=== PATIENT | male | born 1940 | race Caucasian/White ===

== ENCOUNTER 2017-01-16 17:13 | Emergency (ER) | payer MEDICAID ==
[~2017-01-16] VITALS: Ht 177.8 cm; Wt 67.7 kg
[~2017-01-16 17:13] MED LIST: ASPI81TA81 PO; CARB50TA3 PO; CLON0.1T PO; DONE5TAB7 PO; OXYB5TAB10 PO; WARF4TAB51 PO; [UNRECOGNIZED DRUG - CODE] PO
[2017-01-16 17:15] VITALS: BP 153/75; PULSE 60; RESP 16; TEMP 97.9; O2SAT 99
[2017-01-16] MEDS ORDERED: QUET5TAB PO (17:32)
[2017-01-16] MEDS ORDERED: METO50TA11 PO (17:32)
[2017-01-16] MEDS ORDERED: ATOR40TA16 PO (17:32)
[2017-01-16] MEDS ORDERED: LISI2.5T3 PO (17:32)
--- NOTE | 2017-01-16 18:02 | PD ---
HPI Chief Complaint: Keyboard Teacher Problem Time Seen by Provider: 17:21 Travel History International Travel<30 days: No Contact w/Intl Traveler<30days: No Traveled to known affect area: No History of Present Illness HPI This 76-year-old male resents with complaint of blockage of his suprapubic catheter. He has had a suprapubic catheter for about 2 years. It has not been draining. He has been leaking urine out of his penis and around the catheter site. He has been on Cipro for the last 2 days. He has no other complaints PFSH Past Medical History Asthma: No Atrial Fibrillation: Yes Autoimmune Disease: No Anxiety: No Depression: No Heart Rhythm Problems: Yes (PACEMAKER 2013) Cancer: No Cardiac Catheterization: Yes Cardiovascular Problems: Yes (OPEN HEART X5 VESSELS) High Cholesterol: Yes Chest Pain: No Congestive Heart Failure: Yes COPD: No Cerebrovascular Accident: No Coronary Artery Disease: Yes Diabetes: Yes (NO LONGER ) Patient Takes Glucophage: No Diminished Hearing: No Endocrine: No Gastrointestinal Disorders: Yes (RECENT WEIGHT LOSS OF 35 KB IN 2 MONTHS, POOR APPETITE) GERD: No Genitourinary: Yes Headaches: No Hypertension: Yes Immune Disorder: No Implanted Vascular Access Dvce: Yes Musculoskeletal: Yes Neurologic: Yes (PARKINSON'S) Parkinson's Disease: Yes Psychiatric: No Reproductive: No Respiratory: Yes (CHF) Immunizations Current: Yes Migraines: No Myocardial Infarction: Yes Pneumonia: Yes Renal Failure: Yes Seizures: No Sickle Cell Disease: No Sleep Apnea: Yes ("USES MACHINE AT NIGHT") Thyroid Disease: No ?: Not Past Surgical History Abdominal Surgery: Yes AICD: No Appendectomy: Yes Arteriovenous Shunt: No Cardiac Surgery: Yes (4 VESSEL CABG IN 1999, PACER 2012) Coronary Artery Bypass Graft: Yes (4 VESSEL: 1998) Ear Surgery: No Endocrine Surgery: No Eye Surgery: No Genitourinary Surgery: No Insulin Pump: No Joint Replacement: No Neurologic Surgery: No Oral Surgery: No Pacemaker: Yes ([email or web address] [id number] / [id number]) Thoracic Surgery: Yes Other Surgery: Yes (PACEMAKER ) Social History Alcohol Use: No Tobacco Use: No Substance Use: No Allergies-Medications (Allergen,Severity, Reaction): Coded Allergies: No Known Allergies (Unverified , 01/16/17) Reported Meds & Prescriptions Reported Meds & Active Scripts Active Reported Lisinopril 2.5 Mg Tab 2.5 Mg PO DAILY Quetiapine (Quetiapine Fumarate) 50 Mg Tab 50 Mg PO DAILY Atorvastatin (Atorvastatin Calcium) 40 Mg Tab 40 Mg PO HS Metoprolol Succinate ER 24 HR (Metoprolol Succinate) 50 Mg Tab 50 Mg PO DAILY Ditropan (Oxybutynin Chloride) 5 Mg Tab 5 Mg PO Q12HR Aspir-81 (Aspirin) 81 Mg Tabdr 81 Mg PO DAILY Warfarin 2 Mg Tab 2 Mg PO DAILY Donepezil 5 Mg Tab 5 Mg PO HS Carbidopa-Levodopa ER 50-200 Mg Tab 1 Tab PO TID Pacerone (Amiodarone HCl) 100 Mg Tab 100 Mg PO DAILY Review of Systems General / Constitutional: No: Fever, Chills Cardiovascular: No: Chest Pain or Discomfort Respiratory: No: Cough Gastrointestinal: No: Abdominal Pain Genitourinary: Positive: Decreased Urinary Output Neurologic: No: Weakness Physical Exam Narrative GENERAL: Well developed male SKIN: Focused skin assessment warm/dry. HEAD: Atraumatic. Normocephalic. EYES: Pupils equal and round. No scleral icterus. No injection or drainage. ENT: No nasal bleeding or discharge. Mucous membranes pink and moist. NECK: Trachea midline. No JVD. GASTROINTESTINAL: Abdomen soft, non-tender, nondistended. Hepatic and splenic margins not palpable. Purpuric catheter site appears clean. There is no drainage of urine. MUSCULOSKELETAL: No obvious deformities. No clubbing. No cyanosis. No edema. NEUROLOGICAL: Awake and alert. No obvious cranial nerve deficits. Motor grossly within normal limits. Normal speech. PSYCHIATRIC: Appropriate mood and affect; insight and judgment normal. Data Data Last Documented VS Vital Signs Date Time Temp Pulse Resp B/P (MAP) Pulse Ox O2 Delivery O2 Flow Rate FiO2 01/16/17 17:15 97.9 60 16 153/75 (101) 99 Orders Orders Urinalysis - C+S If Indicated (01/16/17 17:35) MDM Medical Decision Making Medical Screen Exam Complete: Yes Emergency Medical Condition: Yes Medical Record Reviewed: Yes Differential Diagnosis Differential includes blocked suprapubic catheter Narrative Course Catheter has been changed. Urine will be sent for culture but he is already on Cipro Procedures Procedure Narrative Procedure was explained. Using sterile technique an 18 Indonesian catheter was inserted in the suprapubic site after the previous catheter was removed. The patient tolerated the procedure well. There were no complications Diagnosis Primary Impression: Obstructed suprapubic catheter Disposition: 01 DISCHARGE HOME Condition: Stable Az Siegel MD Jan 16, 2017 18:02
[2017-03-02] MEDS ORDERED: CLON0.1T PO (15:31)
[2017-03-02] MEDS ORDERED: FURO40TA PO (15:31)
[2017-03-02] MEDS ORDERED: HYDR-3533 PO (16:47)
== END 2017-01-16 18:19 | disposition home or self-care (01) ==
LOC: PHED 17:13
DX: T83.098A Other mechanical complication of other urinary catheter, initial encounter (principal); R82.99 Other abnormal findings in urine; I10 Essential (primary) hypertension; N19 Unspecified kidney failure; E78.00 Pure hypercholesterolemia, unspecified; I25.2 Old myocardial infarction; G47.30 Sleep apnea, unspecified; Z95.0 Presence of cardiac pacemaker; Z86.79 Personal history of other diseases of the circulatory system; Z87.19 Personal history of other diseases of the digestive system; Z87.448 Personal history of other diseases of urinary system; Z87.39 Personal history of other diseases of the musculoskeletal system and connective tissue; Z86.69 Personal history of other diseases of the nervous system and sense organs
CPT/HCPCS: 51705; 87086

== ENCOUNTER 2017-03-21 12:04 | Emergency (ER) | payer MEDICAID ==
[~2017-03-21] VITALS: Ht 177.8 cm; Wt 72.4 kg
[~2017-03-21 12:04] MED LIST changes: +FURO40TA PO; +HYDR-3533 PO; +LISI2.5T3 PO; +METO1TAB9 PO; -OXYB5TAB10 PO; +OXYB5TAB8 PO
[2017-03-21 12:08] VITALS: BP 148/72; PULSE 59; RESP 18; TEMP 98.6; O2SAT 95
--- NOTE | 2017-03-21 12:31 | PD ---
HPI Chief Complaint: Complaint Time Seen by Provider: 12:25 Travel History International Travel<30 days: No Contact w/Intl Traveler<30days: No Traveled to known affect area: No History of Present Illness HPI The patient is a 76-year-old male who presents to the emergency department for dysuria. The patient has a history of chronic indwelling suprapubic catheter secondary to inability to urinate. Patient is followed by his urologist, Dr. Rojas. Most of the history is obtained from family members at bedside. The patient apparently had abdominal discomfort and a blockage of his catheter earlier today, had a small amount of bloody output from the urinary catheter, however, the M.D. to 3 hours ago and the patient now has 300 mL's of dark- colored urine. He denies any acute pain of the suprapubic region upon presentation, but did complain of pain earlier in the day. The family does note the patient has a history of fluid overload secondary to an underlying valvular disorder and is followed by his [facility] specialists, Dr. Perez. They do note the patient has had some increasing swelling of the right leg, right chest wall, and right lateral abdomen secondary to leaning on the right side for several days. The patient is currently on Coumadin. They deny any trauma to the right lower extremity. Symptoms are mild to moderate, possibly exacerbated by underlying urinary tract infection or catheter malfunction, and no current alleviating factors. The patient's primary physician is Dr. Richard. [facility] Past Medical History Hx Anticoagulant Therapy: Yes Asthma: No Atrial Fibrillation: Yes Autoimmune Disease: No Anxiety: No Depression: No Heart Rhythm Problems: Yes (PACEMAKER 2012) Cancer: No Cardiac Catheterization: Yes Cardiovascular Problems: Yes High Cholesterol: Yes Chest Pain: No Congestive Heart Failure: Yes COPD: No Cerebrovascular Accident: No Coronary Artery Disease: Yes Diabetes: Yes (NO LONGER ) Patient Takes Glucophage: No Diminished Hearing: No Endocrine: No Gastrointestinal Disorders: Yes (RECENT WEIGHT LOSS OF 35 KB IN 2 MONTHS, POOR APPETITE) GERD: No Genitourinary: Yes Headaches: No Hypertension: Yes Immune Disorder: No Implanted Vascular Access Dvce: Yes Musculoskeletal: Yes Neurologic: Yes (PARKINSON'S) Parkinson's Disease: Yes Psychiatric: No Reproductive: No Respiratory: Yes (CHF) Immunizations Current: Yes Migraines: No Myocardial Infarction: Yes Pneumonia: Yes Renal Failure: Yes Seizures: No Sickle Cell Disease: No Sleep Apnea: Yes ("USES MACHINE AT NIGHT") Thyroid Disease: No Past Surgical History Abdominal Surgery: Yes AICD: No Appendectomy: Yes Arteriovenous Shunt: No Cardiac Surgery: Yes (4 VESSEL CABG IN 1999, PACER 2012) Coronary Artery Bypass Graft: Yes (4 VESSEL: 1998) Ear Surgery: No Endocrine Surgery: No Eye Surgery: No Genitourinary Surgery: No Insulin Pump: No Joint Replacement: No Neurologic Surgery: No Oral Surgery: No Pacemaker: Yes ([employer] S606 / [id number]) Thoracic Surgery: Yes Other Surgery: Yes (PACEMAKER ) Social History Alcohol Use: No Tobacco Use: No Substance Use: No Allergies-Medications (Allergen,Severity, Reaction): Coded Allergies: No Known Allergies (Unverified Adverse Reaction, Unknown, 03/21/17) Reported Meds & Prescriptions Reported Meds & Active Scripts Active Reported Clonidine (Clonidine HCl) Unknown Strength Tab 0.1 Mg PO BID Furosemide Unknown Strength Tab 20 Mg PO DAILY Lisinopril 2.5 Mg Tab 20 Mg PO DAILY Metoprolol Succinate ER 24 HR (Metoprolol Succinate) 50 Mg Tab 50 Mg PO DAILY Ditropan (Oxybutynin Chloride) 5 Mg Tab 5 Mg PO Q12HR Aspir-81 (Aspirin) 81 Mg Tabdr 81 Mg PO DAILY Warfarin 2 Mg Tab 2 Mg PO DAILY Donepezil 5 Mg Tab 5 Mg PO HS Carbidopa-Levodopa ER 50-200 Mg Tab 1 Tab PO TID Pacerone (Amiodarone HCl) 100 Mg Tab 100 Mg PO DAILY Review of Systems Except as stated in HPI: all other systems reviewed are Neg General / Constitutional: No: Fever Cardiovascular: Positive: Other (AICD in place with chronic valvular disorder requiring Coumadin), No: Chest Pain or Discomfort Respiratory: No: Shortness of Breath Gastrointestinal: No: Nausea, Vomiting Genitourinary: Positive: Dysuria, Other (as noted in the history of present illness) Musculoskeletal: Positive: Edema Physical Exam Narrative GENERAL: Awake, alert, pleasant 76-year-old male who appears his stated age and is in no acute respiratory distress. SKIN: Focused skin assessment warm/dry. HEAD: Atraumatic. Normocephalic. ENT: No nasal bleeding or discharge. Mucous membranes pink and moist. NECK: Trachea midline. No JVD. CARDIOVASCULAR: Regular rate and rhythm. Holosystolic murmur noted. AICD in place left chest wall. RESPIRATORY: No accessory muscle use. Clear to auscultation. Breath sounds equal bilaterally. GASTROINTESTINAL: Abdomen soft, suprapubic catheter in place. 300 mL also dark brown colored urine noted. MUSCULOSKELETAL: Edema noted of the right lateral chest wall and right leg with petechiae. No tenderness of palpation. Pitting edema right lower extremity greater than the left lower extremity. NEUROLOGICAL: Awake and alert. No obvious cranial nerve deficits. Motor grossly within normal limits. Normal speech. PSYCHIATRIC: Appropriate mood and affect; insight and judgment normal. Data Data Last Documented VS Vital Signs Date Time Temp Pulse Resp B/P (MAP) Pulse Ox O2 Delivery O2 Flow Rate FiO2 03/21/17 12:08 98.6 59 18 148/72 (97) 95 Orders Orders Complete Blood Count With Diff (03/21/17 12:25) Prothrombin Time / Inr (Pt) (03/21/17 12:25) Comprehensive Metabolic Panel (03/21/17 12:25) Creatine Kinase (Cpk) (03/21/17 12:25) Urinalysis - C+S If Indicated (03/21/17 12:25) Bladder/Catheter Irrigation (03/21/17 12:25) Urine Culture (03/21/17 12:45) Ceftriaxone Inj (Rocephin Inj) (03/21/17 13:30) Labs Laboratory Tests Test 03/21/17 12:45 White Blood Count 5.7 TH/MM3 Red Blood Count 4.25 MIL/MM3 Hemoglobin 11.8 GM/DL Hematocrit 36.4 % Mean Corpuscular Volume 85.7 FL Mean Corpuscular Hemoglobin 27.7 PG Mean Corpuscular Hemoglobin Concent 32.3 % Red Cell Distribution Width 14.6 % Platelet Count 224 TH/MM3 Mean Platelet Volume 7.5 FL Neutrophils (%) (Auto) 79.7 % Lymphocytes (%) (Auto) 14.7 % Monocytes (%) (Auto) 3.3 % Eosinophils (%) (Auto) 1.7 % Basophils (%) (Auto) 0.6 % Neutrophils # (Auto) 4.6 TH/MM3 Lymphocytes # (Auto) 0.8 TH/MM3 Monocytes # (Auto) 0.2 TH/MM3 Eosinophils # (Auto) 0.1 TH/MM3 Basophils # (Auto) 0.0 TH/MM3 CBC Comment DIFF FINAL Differential Comment Prothrombin Time 26.5 SEC Prothromb Time International Ratio 2.3 RATIO Urine Collection Type CATH Urine Color STRAW Urine Turbidity MOD Urine pH 6.5 Urine Specific [place] 1.011 Urine Protein 100 mg/dL Urine Glucose (UA) NEG mg/dL Urine Ketones NEG mg/dL Urine Occult Blood LARGE Urine Nitrite NEG Urine Bilirubin NEG Urine Leukocyte Esterase SMALL Urine RBC 100-200 /hpf Urine WBC 20-24 /hpf Urine WBC Clumps OCC Urine Squamous Epithelial Cells 0-5 /hpf Urine Transitional Epithelial Cells 0-5 /hpf Urine Calcium Oxalate Crystals MOD /hpf Urine Amorphous Sediment MOD Urine Bacteria MANY /hpf Microscopic Urinalysis Comment CATH-CULTURE IND Urine Collection Time 1300 Blood Urea Nitrogen 25 MG/DL Creatinine 1.30 MG/DL Random Glucose 110 MG/DL Total Protein 6.4 GM/DL Albumin 3.0 GM/DL Calcium Level 8.2 MG/DL Aspartate Amino Transf (AST/SGOT) 14 U/L Alanine Aminotransferase (ALT/SGPT) 7 U/L Total Bilirubin 0.8 MG/DL Sodium Level 140 MEQ/L Potassium Level 3.7 MEQ/L Chloride Level 107 MEQ/L Carbon Dioxide Level 26.9 MEQ/L Anion Gap 6 MEQ/L Estimat Glomerular Filtration Rate 54 ML/MIN MDM Medical Decision Making Medical Screen Exam Complete: Yes Emergency Medical Condition: Yes Medical Record Reviewed: Yes Interpretation(s) Laboratory Tests Test 03/21/17 12:45 White Blood Count 5.7 TH/MM3 Red Blood Count 4.25 MIL/MM3 Hemoglobin 11.8 GM/DL Hematocrit 36.4 % Mean Corpuscular Volume 85.7 FL Mean Corpuscular Hemoglobin 27.7 PG Mean Corpuscular Hemoglobin Concent 32.3 % Red Cell Distribution Width 14.6 % Platelet Count 224 TH/MM3 Mean Platelet Volume 7.5 FL Neutrophils (%) (Auto) 79.7 % Lymphocytes (%) (Auto) 14.7 % Monocytes (%) (Auto) 3.3 % Eosinophils (%) (Auto) 1.7 % Basophils (%) (Auto) 0.6 % Neutrophils # (Auto) 4.6 TH/MM3 Lymphocytes # (Auto) 0.8 TH/MM3 Monocytes # (Auto) 0.2 TH/MM3 Eosinophils # (Auto) 0.1 TH/MM3 Basophils # (Auto) 0.0 TH/MM3 CBC Comment DIFF FINAL Differential Comment Prothrombin Time 26.5 SEC Prothromb Time International Ratio 2.3 RATIO Urine Collection Type CATH Urine Color STRAW Urine Turbidity MOD Urine pH 6.5 Urine Specific [place] 1.011 Urine Protein 100 mg/dL Urine Glucose (UA) NEG mg/dL Urine Ketones NEG mg/dL Urine Occult Blood LARGE Urine Nitrite NEG Urine Bilirubin NEG Urine Leukocyte Esterase SMALL Urine RBC 100-200 /hpf Urine WBC 20-24 /hpf Urine WBC Clumps OCC Urine Squamous Epithelial Cells 0-5 /hpf Urine Transitional Epithelial Cells 0-5 /hpf Urine Calcium Oxalate Crystals MOD /hpf Urine Amorphous Sediment MOD Urine Bacteria MANY /hpf Microscopic Urinalysis Comment CATH-CULTURE IND Urine Collection Time 1300 Blood Urea Nitrogen 25 MG/DL Creatinine 1.30 MG/DL Random Glucose 110 MG/DL Total Protein 6.4 GM/DL Albumin 3.0 GM/DL Calcium Level 8.2 MG/DL Alkaline Phosphatase 98 U/L Aspartate Amino Transf (AST/SGOT) 14 U/L Alanine Aminotransferase (ALT/SGPT) 7 U/L Total Bilirubin 0.8 MG/DL Sodium Level 140 MEQ/L Potassium Level 3.7 MEQ/L Chloride Level 107 MEQ/L Carbon Dioxide Level 26.9 MEQ/L Anion Gap 6 MEQ/L Estimat Glomerular Filtration Rate 54 ML/MIN Total Creatine Kinase 31 U/L Differential Diagnosis Differential diagnosis includes complicated UTI, obstructive suprapubic catheter , acute renal failure, Coumadin toxicity, dependent edema, hyponatremia, dehydration. Narrative Course IV was established, labs are drawn and sent, and the patient was placed on cardiac telemetry monitoring and continuous pulse oximetry monitoring. UA was sent to lab. The patient's suprapubic catheter was irrigated. The patient does have dependent edema of the right lower extremity with petechiae noted as well as right lateral chest wall, it appears to be secondary to dependent edema. The patient laid on his right side. The patient's family was advised to roll him and have him leaned to the left as well as set upright more often. They're also advised elevate his legs and wear WALDEMAR hose lower extremities as needed. The patient's Peters catheter was irrigated, there was no obstruction. UA reveals RBCs and WBCs with many bacteria, likely complicated urinary tract infection with chronic indwelling catheter. Patient's creatinine has not changed significantly. INR is therapeutic at 2.3, doubt DVT on the right lower extremity with therapeutic INR, most likely dependent edema as he also has it on the right lateral chest wall, family is advised to wear WALDEMAR hose, elevate right lower extremity, and to turn the patient multiple times during the day to avoid dependent edema on the right side of the body. The patient is on Coumadin , therefore, will prescribe Bactrim as opposed to Cipro, and an attempt to not increase the patient's INR. However, he will still need repeat INR this week and follow-up with his primary physician. He will be provided a copy of his labs at discharge. Diagnosis Primary Impression: Complicated UTI (urinary tract infection) Patient Instructions: General Instructions Additional Instructions: Medication as directed. WALDEMAR hose for lower extremities bilaterally. Monitor urinary output. Elevate right lower extremity. Turn patient several times throughout the day to avoid dependent edema on the right side of the body. Please provide the family and patient a copy of his labs at discharge for follow -up with his primary physician. Return if symptoms worsen or progress. Med/Other Pt SpecificInfo: Prescription(s) given Scripts Sulfamethoxazole-Trimethoprim (Bactrim DS) 800-160 Mg Tab 1 TAB PO BID for Infection, #14 TAB 0 Refills Prov: Heron Salvador MD 03/21/17 Disposition: 01 DISCHARGE HOME Condition: Stable Heron Salvador MD Mar 21, 2017 12:31
[2017-03-21 12:54] LABS: AUTOMATED NEUTROPHIL # 4.6 TH/MM3 (1.8-7.7); BASOPHIL % 0.6 % (0.0-2.0); EOSINOPHIL # 0.1 TH/MM3 (0-0.4); EOSINOPHIL % 1.7 % (0.0-4.0); HEMATOCRIT 36.4 % (39.0-51.0); LYMPH % 14.7 % (9.0-44.0); LYMPHOCYTE # 0.8 TH/MM3 (1.0-4.8); MEAN CELL VOLUME 85.7 FL (80.0-100.0); MEAN CORPUSCULAR HEMOGLOBIN 27.7 PG (27.0-34.0); MEAN CORPUSCULAR HGB CONC 32.3 % (32.0-36.0); MONO % 3.3 % (0.0-8.0); NEUT % 79.7 % (16.0-70.0); PLATELET COUNT 224 TH/MM3 (150-450); RED BLOOD COUNT 4.25 MIL/MM3 (4.50-5.90); RED CELL DISTRIBUTION WIDTH 14.6 % (11.6-17.2); WHITE BLOOD COUNT 5.7 TH/MM3 (4.0-11.0)
[2017-03-21 12:55] LABS: HEMO FLAGS DIFF FINAL
[2017-03-21 13:06] LABS: CHLORIDE 107 MEQ/L (98-107); POTASSIUM 3.7 MEQ/L (3.5-5.1); SODIUM (NA) 140 MEQ/L (136-145)
[2017-03-21 13:10] LABS: ANION GAP 6 MEQ/L (5-15); BICARBONATE 26.9 MEQ/L (21.0-32.0); BLOOD UREA NITROGEN 25 MG/DL (7-18); BLOOD, URINE LARGE (NEG); GLUCOSE,URINE NEG (NEG); KETONE, URINE NEG (NEG); NITRITE,URINE NEG (NEG); PH, URINE 6.5 (5.0-8.5)
[2017-03-21 13:11] LABS: INTERNATIONAL NORMALIZED RATIO 2.3 RATIO; PROTHROMBIN TIME - PATIENT 26.5 SEC (9.8-11.6)
[2017-03-21 13:12] LABS: METHOD OF COLLECTION CATH; URINE COLOR STRAW (YELLW/STRAW)
[2017-03-21 13:13] LABS: ALT (GPT) 7 U/L (12-78); AST (GOT) 14 U/L (15-37)
[2017-03-21 13:14] LABS: GLOMERULAR FILTRATION RATE 54 ML/MIN (>89)
[2017-03-21 13:15] LABS: BACTERIA, URINE MANY /hpf; COMMENT (UR) CATH-CULTURE IND; CULTURE IF INDICATED CATH CULTURE IND; RBC, URINE 100-200 /hpf (0-3); SQUAMOUS EPITHELIAL CELL URINE 0-5 /hpf (0-5); TOTAL BILIRUBIN ADULT 0.8 MG/DL (0.2-1.0)
[2017-03-21 13:16] LABS: ALKALINE PHOSPHATASE 98 U/L (45-117); CALCIUM OXALATE CRYSTALS,URINE MOD /hpf; COMMENT2 (UR) MUCOUS PRESENT; TRANSITIONAL EPI CELLS, URINE 0-5 /hpf
[2017-03-21 13:25] LABS: CREATINE KINASE 31 U/L (39-308)
[2017-03-21] MEDS ORDERED: BACT800T5 PO (13:29)
[2017-03-21] MEDS ORDERED: cefTRIAXone INJ 1,000 MG in SODIUM CHLORIDE 0.9% INJ 100 ML IV ONE (13:30)
[2017-03-21] MEDS ORDERED: PHEN0.4T PO (14:37)
[2017-03-29] MEDS ORDERED: OXYB5TAB8 PO (15:01)
== END 2017-03-21 14:43 | disposition home or self-care (01) ==
LOC: PHED 12:04
DX: N39.0 Urinary tract infection, site not specified (principal); R60.0 Localized edema; B96.5 Pseudomonas (aeruginosa) (mallei) (pseudomallei) as the cause of diseases classified elsewhere; B96.20 Unspecified Escherichia coli [E. coli] as the cause of diseases classified elsewhere; E11.9 Type 2 diabetes mellitus without complications; I10 Essential (primary) hypertension; N19 Unspecified kidney failure; E78.00 Pure hypercholesterolemia, unspecified; G47.30 Sleep apnea, unspecified; I25.2 Old myocardial infarction; Z79.01 Long term (current) use of anticoagulants; Z95.0 Presence of cardiac pacemaker; Z86.79 Personal history of other diseases of the circulatory system; Z87.19 Personal history of other diseases of the digestive system; Z87.448 Personal history of other diseases of urinary system; Z87.39 Personal history of other diseases of the musculoskeletal system and connective tissue
CPT/HCPCS: 51700; 80053; 81001; 82550; 85025; 85610; 87077; 87086; 87186; 96365; 99284; J0696

== ENCOUNTER 2017-07-19 13:38 | Emergency (ER) | payer MEDICAID ==
[~2017-07-19] VITALS: Ht 170.2 cm; Wt 59.0 kg
[~2017-07-19 13:38] MED LIST changes: -CLON0.1T PO; +CLON0.2T PO; -HYDR-3533 PO; +KLOR20TA3 PO
[2017-07-19 14:01] VITALS: BP 106/66; PULSE 60; RESP 18; TEMP 97.6; O2SAT 96
--- NOTE | 2017-07-19 14:42 | PD ---
HPI Chief Complaint: heel wounds Time Seen by Provider: 13:55 Travel History International Travel<30 days: No Contact w/Intl Traveler<30days: No Traveled to known affect area: No History of Present Illness HPI This patient is brought in by family members. They are concerned about wounds on both heels. Patient is bedbound and lies on his back almost exclusively. He has wounds on his heels. They noticed them 10 days ago. That was his chief Concern. They also wonder if we can check his INR and change his suprapubic catheter. He is on Coumadin for A. fib. He is not having acute pain. No suprapubic distention. No hematuria. PFSH Past Medical History Hx Anticoagulant Therapy: Yes (Warfarin ) Asthma: No Atrial Fibrillation: Yes Autoimmune Disease: No Anxiety: No Depression: No Heart Rhythm Problems: Yes (PACEMAKER 2012) Cancer: No Cardiac Catheterization: Yes Cardiovascular Problems: Yes High Cholesterol: Yes Chest Pain: No Congestive Heart Failure: Yes COPD: No Cerebrovascular Accident: No Coronary Artery Disease: Yes Diabetes: No Diminished Hearing: No Endocrine: No Gastrointestinal Disorders: Yes (RECENT WEIGHT LOSS OF 35 KB IN 2 MONTHS, POOR APPETITE) GERD: No Genitourinary: Yes Headaches: No Hypertension: Yes Immune Disorder: No Implanted Vascular Access Dvce: Yes Kidney Stones: No Musculoskeletal: Yes Neurologic: Yes (PARKINSON'S) Parkinson's Disease: Yes Psychiatric: No Reproductive: No Respiratory: Yes (CHF) Immunizations Current: Yes Migraines: No Myocardial Infarction: Yes Pneumonia: Yes Renal Failure: Yes Seizures: No Sickle Cell Disease: No Sleep Apnea: No Thyroid Disease: No Ulcer: No Tetanus Vaccination: < 5 Years Influenza Vaccination: Yes ?: Not Past Surgical History Abdominal Surgery: Yes AICD: No Appendectomy: Yes Arteriovenous Shunt: No Cardiac Surgery: Yes (4 VESSEL CABG IN 1999, PACER 2012) Coronary Artery Bypass Graft: Yes (4 VESSEL: 1998) Ear Surgery: No Endocrine Surgery: No Eye Surgery: No Genitourinary Surgery: No Insulin Pump: No Joint Replacement: No Neurologic Surgery: No Oral Surgery: No Pacemaker: Yes ([employer] S606 / [id number]) Thoracic Surgery: Yes Other Surgery: Yes (PACEMAKER ) Social History Alcohol Use: No Tobacco Use: No Substance Use: No Allergies-Medications (Allergen,Severity, Reaction): Coded Allergies: No Known Allergies (Verified Allergy, Unknown, 07/19/17) Reported Meds & Prescriptions Reported Meds & Active Scripts Active Furosemide 40 Mg Tab 40 Mg PO BID@ Ditropan (Oxybutynin Chloride) 5 Mg Tab 5 Mg PO Q8HR Reported Metoprolol Succinate ER 24 HR (Metoprolol Succinate) 50 Mg Tab 12.5 Mg PO BID Aspir-81 (Aspirin) 81 Mg Tabdr 81 Mg PO DAILY Warfarin 2 Mg Tab 2 Mg PO DAILY Donepezil 5 Mg Tab 5 Mg PO HS Carbidopa-Levodopa ER 50-200 Mg Tab 1 Tab PO TID Pacerone (Amiodarone HCl) 100 Mg Tab 100 Mg PO DAILY Review of Systems General / Constitutional: No: Fever Eyes: No: Visual changes HENT: No: Headaches Cardiovascular: Positive: Irregular Rhythm, No: Chest Pain or Discomfort Respiratory: No: Shortness of Breath Gastrointestinal: No: Abdominal Pain Genitourinary: No: Dysuria Musculoskeletal: Positive: Weakness, No: Pain Skin: No Rash Neurologic: Positive: Weakness Psychiatric: No: Depression Endocrine: No: Polydipsia Hematologic/Lymphatic: No: Easy Bruising Physical Exam Narrative GASTROINTESTINAL: Abdomen soft, non-tender, nondistended. Positive bowel sounds. No hepato-splenomegaly, or palpable masses. No guarding. Suprapubic distention. Her pubic catheter in place with no sign of infection : No penile swelling or tenderness. Peters catheter bag from the suprapubic site has yellow urine with no blood or visible hematuria Heels: Has bilateral stage II decubitus on both heels no sign of infection there. No drainage or bleeding. RESPIRATORY: Respiratory effort unlabored, no retractions or use of accessory muscles. Breath sounds are clear and symmetric. CARDIOVASCULAR: Irregularly irregular rhythm without murmur. Extremities showed no edema or varicosities. Psych: Normal mood and flat affect. To be a bit reduced in terms of insight and judgment. He has Parkinson's Data Data Last Documented VS Vital Signs Date Time Temp Pulse Resp B/P (MAP) Pulse Ox O2 Delivery O2 Flow Rate FiO2 07/19/17 14:01 97.6 60 18 106/66 (79) 96 Orders Orders Prothrombin Time / Inr (Pt) (07/19/17 14:36) Ed Discharge Order (07/19/17 15:30) MDM Medical Decision Making Medical Screen Exam Complete: Yes Emergency Medical Condition: Yes Medical Record Reviewed: Yes Differential Diagnosis Decubitus ulcer, cellulitis, pressure sore Narrative Course I have reviewed the patient's electronic medical record. Reviewed his discharge summary from June 15, 2017. He is complex medical history Patient has stage II decubitus on both feel We redress them I discussed that he'll need to keep pressure off those heals by having him on his side and rotating frequently Regarding the suprapubic catheter, since it is working normally I don't think changing in the emergency room is ideal. We don't have a lot of familiarity with the and should there be a problem there is no urologist in the building to assist. He is also on Coumadin in case it starts to bleed. We don't want to convert this into an emergent problem. I discussed this with family and they will contact their urologist for changing this out Family asked for an INR to be drawn which I have ordered Family has not side of the don't want the blood drawn and wanted to go home Diagnosis Primary Impression: Decubitus ulcers Qualified Codes: L89.602 - Pressure ulcer of unspecified heel, stage 2 Additional Instructions: The patient was advised to follow up with their physician and return if they worsen. Follow up with urologist Keep pressure off heels Med/Other Pt SpecificInfo: Other Disposition: DISCHARGE HOME Condition: Stable Jose Matthew MD Jul 19, 2017 14:42
[2017-07-19 15:53] VITALS: BP 129/71
== END 2017-07-19 15:55 | disposition home or self-care (01) ==
LOC: PHED 13:38
DX: L89.622 Pressure ulcer of left heel, stage 2 (principal); L89.612 Pressure ulcer of right heel, stage 2; R53.1 Weakness; I48.91 Unspecified atrial fibrillation; E78.00 Pure hypercholesterolemia, unspecified; I11.0 Hypertensive heart disease with heart failure; I50.9 Heart failure, unspecified; I25.10 Atherosclerotic heart disease of native coronary artery without angina pectoris; G20 Parkinson's disease
CPT/HCPCS: 99281

== ENCOUNTER 2017-08-31 21:28 | Observation (INO) | payer MEDICAID ==
[~2017-08-31] VITALS: Ht 182.9 cm; Wt 50.0 kg
[~2017-08-31 21:28] MED LIST changes: -CLON0.2T PO; -KLOR20TA3 PO; -LISI2.5T3 PO
[2017-08-31 21:36] VITALS: BP 110/67; PULSE 60; RESP 16; TEMP 97.5; TEMP 98.1; O2SAT 98
[2017-08-31 21:43] VITALS: O2SAT 98
[2017-08-31] MEDS ORDERED: SODIUM CHLOR 0.9% 250 ML INJ 250 ML IV ONE ×2 (21:45→23:45)
--- NOTE | 2017-08-31 21:50 | PD ---
HPI Chief Complaint: General Weakness Time Seen by Provider: 21:31 Travel History International Travel<30 days: No Contact w/Intl Traveler<30days: No Traveled to known affect area: No History of Present Illness HPI The patient is a 76 year old male who presents to the [facility] emergency department with a history of generalized weak that began 1 week ago. The patient is brought in by ambulance services. The patient resides with his son who is reportedly on the way to the emergency department. The patient according to ambulance services has been increasingly weak over the last week. He has had diarrhea. They are unsure how many times he has had diarrhea per day. He has not been eating or drinking well. Ambulance services were called as the patient had a decreased level of consciousness today. The patient on arrival is drowsy although easily awakened. The patient appears to have normal vital signs and is afebrile. The patient denies having any pain. The patient has a history of Parkinson's. The patient is oriented to person, and place, however not time or situation. The patient's electronic medical record is reviewed for additional history. The patient's family arrived at the bedside and reports that he has been experiencing increasing weakness over the last week with decreased p.o. intake that is new. He has had diarrhea approximately 10 times per day that is a watery brown stool. They deny him having any mucus or blood in his stool. They report that earlier today he had a fever with a T-max of 100.4 PFSH Past Medical History Narrative Medical The patient's past medical history is significant for a recent admission June 06 - June 15, 2017 for syncope thought to be related to autonomic dysfunction from Parkinson's and a CHF exacerbation. The patient has a history of congestive heart failure, indwelling suprapubic catheter, atrial fibrillation , hypertension, chronic renal insufficiency, diabetes mellitus, dementia, benign prostatic hypertrophy, and lower extremity edema. According to the record the patient is chronically anticoagulated on warfarin. Hx Anticoagulant Therapy: Yes (Warfarin ) Asthma: No Atrial Fibrillation: Yes Autoimmune Disease: No Anxiety: No Depression: No Heart Rhythm Problems: Yes (PACEMAKER 2013) Cancer: No Cardiac Catheterization: Yes Cardiovascular Problems: Yes High Cholesterol: Yes Chest Pain: No Congestive Heart Failure: Yes COPD: No Cerebrovascular Accident: No Coronary Artery Disease: Yes Diabetes: No Diminished Hearing: No Endocrine: No Gastrointestinal Disorders: Yes (RECENT WEIGHT LOSS OF 35 KB IN 2 MONTHS, POOR APPETITE) GERD: No Genitourinary: Yes Headaches: No Hypertension: Yes Immune Disorder: No Implanted Vascular Access Dvce: Yes Kidney Stones: No Musculoskeletal: Yes Neurologic: Yes (PARKINSON'S) Parkinson's Disease: Yes Psychiatric: No Reproductive: No Respiratory: Yes (CHF) Immunizations Current: Yes Migraines: No Myocardial Infarction: Yes Pneumonia: Yes Renal Failure: Yes Seizures: No Sickle Cell Disease: No Sleep Apnea: No Thyroid Disease: No Ulcer: No Tetanus Vaccination: Unknown Past Surgical History Narrative Surgical The patient's past surgical history is significant for pacemaker placement, coronary artery bypass grafting of 4 vessels in 1998, appendectomy. Abdominal Surgery: Yes AICD: No Appendectomy: Yes Arteriovenous Shunt: No Cardiac Surgery: Yes (4 VESSEL CABG IN 1999, PACER 2012) Coronary Artery Bypass Graft: Yes (4 VESSEL: 1998) Ear Surgery: No Endocrine Surgery: No Eye Surgery: No Genitourinary Surgery: No Insulin Pump: No Joint Replacement: No Neurologic Surgery: No Oral Surgery: No Pacemaker: Yes ([employer] [id number] / [id number]) Thoracic Surgery: Yes Other Surgery: Yes (PACEMAKER ) Social History Alcohol Use: No Tobacco Use: No Substance Use: No Allergies-Medications (Allergen,Severity, Reaction): Coded Allergies: No Known Allergies (Verified Allergy, Unknown, 08/31/17) Reported Meds & Prescriptions Reported Meds & Active Scripts Active Furosemide 40 Mg Tab 40 Mg PO BID@ Ditropan (Oxybutynin Chloride) 5 Mg Tab 5 Mg PO Q8HR Reported Aspir-81 (Aspirin) 81 Mg Tabdr 81 Mg PO DAILY Warfarin 2 Mg Tab 2 Mg PO DAILY Donepezil 5 Mg Tab 5 Mg PO HS Carbidopa-Levodopa ER 50-200 Mg Tab 3 Tab PO TID Pacerone (Amiodarone HCl) 100 Mg Tab 100 Mg PO HS Review of Systems Except as stated in HPI: all other systems reviewed are Neg General / Constitutional: No: Fever Eyes: No: Visual changes HENT: No: Headaches Cardiovascular: No: Chest Pain or Discomfort Respiratory: No: Shortness of Breath Gastrointestinal: Positive: Diarrhea, Changes in Bowel Habits, No: Nausea, Vomiting, Abdominal Pain Genitourinary: No: Dysuria Musculoskeletal: No: Pain Skin: No Rash Neurologic: Positive: Weakness, No: Focal Abnormalities, Change in Mentation, Slurred Speech, Sensory Disturbance Psychiatric: No: Depression Endocrine: No: Polydipsia Hematologic/Lymphatic: No: Easy Bruising Physical Exam Narrative General: The patient is Head and Neck exam: Head is normocephalic atraumatic. Eyes: EOMI, pupils are equal round and reactive to light. Nose: Midline septum with pink mucous membranes Mouth: Dentition unremarkable. Moist mucus membranes. Posterior oropharynx is not erythematous. No tonsillar hypertrophy. Uvula midline. Airway patent. Neck: No palpable lymphadenopathy. No nuchal rigidity. No thyromegaly. Cardiovascular: Regular rate and rhythm without murmurs, gallops, or rubs. No pulse deficit to the extremities. Lungs: Clear to auscultation bilaterally. No wheezes, rhonchi, or rales. Abdomen: Soft, without tenderness to palpation in all 4 quadrants of the abdomen. No guarding, rebound, or rigidity. Negative Oxford sign. Extremities: No clubbing, cyanosis, or edema. 2+ pulses in all 4 extremities. Back: No spinous process tenderness to palpation. No costovertebral angle tenderness to palpation. Neurologic Exam: Cranial nerves 2-12 were intact on exam. Strength is 5/5 in all 4 extremities. No sensory deficits noted. No dysdiadochokinesis. Good finger to nose and Heel to cantu bilaterally. Skin Exam: No rash noted. Intact skin that is warm and dry. Data Data Last Documented VS Vital Signs Date Time Temp Pulse Resp B/P (MAP) Pulse Ox O2 Delivery O2 Flow Rate FiO2 09/01/17 00:00 59 14 102/58 (73) 97 Room Air 08/31/17 21:43 2.00 08/31/17 21:36 97.5 Orders Orders Electrocardiogram (08/31/17 21:39) Complete Blood Count With Diff (08/31/17 21:39) Comprehensive Metabolic Panel (08/31/17 21:39) Creatine Kinase (Cpk) (08/31/17 21:39) Ckmb (Isoenzyme) Profile (08/31/17 21:39) Troponin I (08/31/17 21:39) B-Type Natriuretic Peptide (08/31/17 21:39) Prothrombin Time / Inr (Pt) (08/31/17 21:39) Act Partial Throm Time (Ptt) (08/31/17 21:39) Lipase (08/31/17 21:39) Urinalysis - C+S If Indicated (08/31/17 21:39) Magnesium (Mg) (08/31/17 21:39) Enteric Path (Stool) (08/31/17 21:39) C Diff Toxin Pcr (08/31/17 21:39) Chest, Single Ap (08/31/17 21:39) Ct Brain W/O Iv Contrast(Rout) (08/31/17 21:39) Iv Access Insert/Monitor (08/31/17 21:39) Ecg Monitoring (08/31/17 21:39) Oximetry (08/31/17 21:39) Stool Wbc (Leukocytes) (08/31/17 21:39) Sodium Chlor 0.9% 250 Ml Inj (Ns 250 Ml (08/31/17 21:45) Urine Culture (08/31/17 21:45) Potassium Chloride Eff (K-Lyte Cl Eff) (08/31/17 22:45) Sodium Chlor 0.9% 250 Ml Inj (Ns 250 Ml (08/31/17 23:45) Admit Order (Ed Use Only) (09/01/17 00:21) Labs Laboratory Tests Test 08/31/17 21:45 08/31/17 23:10 White Blood Count 8.0 TH/MM3 Red Blood Count 3.77 MIL/MM3 Hemoglobin 10.4 GM/DL Hematocrit 31.1 % Mean Corpuscular Volume 82.6 FL Mean Corpuscular Hemoglobin 27.7 PG Mean Corpuscular Hemoglobin Concent 33.6 % Red Cell Distribution Width 18.1 % Platelet Count 292 TH/MM3 Mean Platelet Volume 7.6 FL Neutrophils (%) (Auto) 77.6 % Lymphocytes (%) (Auto) 14.9 % Monocytes (%) (Auto) 5.6 % Eosinophils (%) (Auto) 1.4 % Basophils (%) (Auto) 0.5 % Neutrophils # (Auto) 6.2 TH/MM3 Lymphocytes # (Auto) 1.2 TH/MM3 Monocytes # (Auto) 0.5 TH/MM3 Eosinophils # (Auto) 0.1 TH/MM3 Basophils # (Auto) 0.0 TH/MM3 CBC Comment DIFF FINAL Differential Comment Prothrombin Time 16.5 SEC Prothromb Time International Ratio 1.6 RATIO Activated Partial Thromboplast Time 36.9 SEC Urine Color YELLOW Urine Turbidity CLOUDY Urine pH 5.5 Urine Specific [place] 1.019 Urine Protein 30 mg/dL Urine Glucose (UA) NEG mg/dL Urine Ketones NEG mg/dL Urine Occult Blood MOD Urine Nitrite NEG Urine Bilirubin NEG Urine Urobilinogen 2.0 MG/DL Urine Leukocyte Esterase LARGE Urine RBC 93 /hpf Urine WBC /hpf Urine Amorphous Sediment RARE Urine Bacteria MANY /hpf Microscopic Urinalysis Comment CULTURE INDICATED Blood Urea Nitrogen 35 MG/DL Creatinine 1.33 MG/DL Random Glucose 101 MG/DL Total Protein 7.1 GM/DL Albumin 2.6 GM/DL Calcium Level 8.7 MG/DL Magnesium Level 2.0 MG/DL Alkaline Phosphatase 105 U/L Aspartate Amino Transf (AST/SGOT) 12 U/L Alanine Aminotransferase (ALT/SGPT) LESS THAN 6 U/L Total Bilirubin 0.7 MG/DL Sodium Level 140 MEQ/L Potassium Level 3.1 MEQ/L Chloride Level 103 MEQ/L Carbon Dioxide Level 29.5 MEQ/L Anion Gap 8 MEQ/L Estimat Glomerular Filtration Rate 52 ML/MIN Total Creatine Kinase 98 U/L Troponin I 0.03 NG/ML B-Type Natriuretic Peptide 289 PG/ML Lipase 84 U/L [facility] Medical Decision Making Medical Screen Exam Complete: Yes Emergency Medical Condition: Yes Medical Record Reviewed: Yes Interpretation(s) Last Impressions Head CT [id number]/[id number] Signed Impressions: Service Date/Time: Thursday, August 31, 2017 22:15 - CONCLUSION: 1. Cerebral atrophy. 2. No acute intracranial abnormality Clinton English MD Chest X-Ray [id number]/[id number] Signed Impressions: Service Date/Time: Thursday, August 31, 2017 21:58 - CONCLUSION: Cardiomegaly and CABG. Clinton English MD Differential Diagnosis Intracranial abnormality, versus encephalopathy, versus infectious diarrhea such as C. difficile colitis, versus gastroenteritis, versus progression of Parkinson's with poor p.o. intake, versus dehydration, versus electrolyte derangements Narrative Course During the course of the patient's emergency department visit, the patient's history, examination, and differential diagnosis were reviewed with the patient. The patient was placed on a cardiac rehabilitation program director with oximetry and frequent blood pressure monitoring. The patient had IV access obtained and blood work sent for analysis. The patient had an EKG done on arrival that shows an electronic paced rhythm at 60, no other acute abnormality. The patient was initially provided normal saline at 250 mL bolus which was repeated 1, potassium 25 mEq p.o. 1 was administered after mild hypokalemia was noted per The patient's laboratory studies were reviewed and remarkable for a white count of 8, hemoglobin 10.4, platelets 292 with neutrophils 77.6. CMP is remarkable for potassium of 3.1, BUN 35, creatinine 1.33 which is increased compared to previously, AST 12, ALT less than 6, cardiac enzymes within normal limits, BNP is elevated at 289, lipase 86, albumin is 2.6, PT 16.5, INR 1.6, PTT 36.9, urinalysis shows moderate occult blood large leukocyte esterase RBCs 93 innumerable WBCs, many bacteria, culture indicated. Review of the electronic medical record reveals that infectious disease has been consulted regarding patient's urinary abnormalities in the past and dictated that the patient appears to be colonized with Pseudomonas. Antibiotic was held at this time pending further evaluation, culture is pending. Radiology studies were reviewed and remarkable for a chest x-ray that showed cardiomegaly and evidence of a coronary artery bypass graft. CT scan of the brain shows cerebral atrophy, no acute intracranial abnormality. The patient's results were discussed with the patient, including the plan of care. I explained that further testing and/ or monitoring is indicated based on the patient's history, examination, and/ or laboratory findings. Therefore, I recommended admission for additional evaluation. The patient expressed understanding and was agreeable with this plan. The patient was admitted to the hospital in stable condition and [facility] Physician Communication Physician Communication The patient's case including history, pertinent physical examination findings, and laboratory studies were discussed with Dr. Anthony. It was agreed that the patient would be admitted to the [facility] service. Diagnosis Primary Impression: Generalized weakness Additional Impressions: Dehydration Hypokalemia Diarrhea Qualified Codes: R19.7 - Diarrhea, unspecified Admitting Information Admitting Physician Requests: Observation Demi Sifuentes MD Aug 31, 2017 21:50
[2017-08-31 22:00] VITALS: BP 114/66; PULSE 60; RESP 14; O2SAT 99
[2017-08-31 22:03] LABS: AUTOMATED NEUTROPHIL # 6.2 TH/MM3 (1.8-7.7); BASOPHIL % 0.5 % (0.0-2.0); EOSINOPHIL # 0.1 TH/MM3 (0-0.4); EOSINOPHIL % 1.4 % (0.0-4.0); HEMATOCRIT 31.1 % (39.0-51.0); HEMOGLOBIN 10.4 GM/DL (13.0-17.0); LYMPH % 14.9 % (9.0-44.0); LYMPHOCYTE # 1.2 TH/MM3 (1.0-4.8); MEAN CELL VOLUME 82.6 FL (80.0-100.0); MEAN CORPUSCULAR HEMOGLOBIN 27.7 PG (27.0-34.0); MEAN CORPUSCULAR HGB CONC 33.6 % (32.0-36.0); MEAN PLATELET VOLUME 7.6 FL (7.0-11.0); MONO % 5.6 % (0.0-8.0); MONOCYTE # 0.5 TH/MM3 (0-0.9); NEUT % 77.6 % (16.0-70.0); PLATELET COUNT 292 TH/MM3 (150-450); RED BLOOD COUNT 3.77 MIL/MM3 (4.50-5.90); RED CELL DISTRIBUTION WIDTH 18.1 % (11.6-17.2)
--- NOTE | 2017-08-31 22:07 | RADRPT ---
EXAM DATE/TIME: 08/31/2017 21:58 [facility] COMPARISON: CHEST SINGLE AP, June 05, 2017, 22:43. INDICATIONS : Shortness of breath. MEDICAL HISTORY : Congestive heart failure. Myocardial infarction. Hypercholesterolemia, Coronary artery disease. Atria l fibrillation. Hypertension. Renal failure. Enlarged prostate, Diabetes SURGICAL HISTORY : CABG. Pacemaker. Cholecystectomy ENCOUNTER: Initial ACUITY: 1 day PAIN SCORE: 0/10 LOCATION: Bilateral chest FINDINGS: A single view of the chest demonstrates cardiomegaly and CABG. Left-sided pacemaker unchanged. Lungs are relatively clear. Pulmonary vascularity normal. The cardiomediastinal contours are unremarkable. Osseous structures are intact. CONCLUSION: Cardiomegaly and CABG. Clinton English MD on August 31, 2017 at 22:04 Board Certified Radiologist. This report was verified electronically.
[2017-08-31 22:13] LABS: AMORPHOUS SEDIMENT, URINE RARE; BACTERIA, URINE MANY /hpf; BILIRUBIN, URINE NEG (NEG); BLOOD, URINE MOD (NEG); GLUCOSE,URINE NEG (NEG); KETONE, URINE NEG (NEG); NITRITE,URINE NEG (NEG); PH, URINE 5.5 (5.0-8.5); URINE COLOR YELLOW (YELLW/STRAW); URINE LEUKOCYTE ESTERASE LARGE (NEG)
[2017-08-31 22:21] LABS: ALBUMIN 2.6 GM/DL (3.4-5.0); AST (GOT) 12 U/L (15-37); BICARBONATE 29.5 MEQ/L (21.0-32.0); BLOOD UREA NITROGEN 35 MG/DL (7-18); CALCIUM 8.7 MG/DL (8.5-10.1); CHLORIDE 103 MEQ/L (98-107); CREATININE 1.33 MG/DL (0.60-1.30); GLOMERULAR FILTRATION RATE 52 ML/MIN (>89); GLUCOSE,RANDOM 101 MG/DL (74-106); SODIUM (NA) 140 MEQ/L (136-145)
[2017-08-31 22:22] LABS: ALT (GPT) LESS THAN 6 U/L (12-78)
--- NOTE | 2017-08-31 22:24 | RADRPT ---
EXAM DATE/TIME: 08/31/2017 22:15 [facility] COMPARISON: CT BRAIN W/O CONTRAST, June 06, 2017, 1:20. INDICATIONS : General weakness. RADIATION DOSE: 35.82 CTDIvol (mGy) MEDICAL HISTORY : Parkinson's. Myocardial infarction. Hypertension.CHF. SURGICAL HISTORY : CABG Pacemaker. ENCOUNTER: Initial ACUITY: 1 day PAIN SCALE: Non-responsive LOCATION: cranial TECHNIQUE: Multiple contiguous axial images were obtained of the head. Using automated exposure control and adj ustment of the mA and/or kV according to patient size, radiation dose was kept as low as reasonably a chievable to obtain optimal diagnostic quality images. DICOM format image data is available electro nically for review and comparison. FINDINGS: CEREBRUM: The ventricles are normal for age. Cerebral atrophy. No evidence of midline shift, mass lesion, hemor rhage or acute infarction. No extra-axial fluid collections are seen. POSTERIOR FOSSA: The cerebellum and brainstem are intact. The 4th ventricle is midline. The cerebellopontine angle i s unremarkable. EXTRACRANIAL: The visualized portion of the orbits is intact. SKULL: The calvaria is intact. No evidence of skull fracture. CONCLUSION: 1. Cerebral atrophy. 2. No acute intracranial abnormality Clinton English MD on August 31, 2017 at 22:20 Board Certified Radiologist. This report was verified electronically.
[2017-08-31 22:25] LABS: ALKALINE PHOSPHATASE 105 U/L (45-117); TOTAL BILIRUBIN ADULT 0.7 MG/DL (0.2-1.0); TOTAL PROTEIN 7.1 GM/DL (6.4-8.2); TROPONIN I 0.03 NG/ML (0.02-0.05)
[2017-08-31] MEDS ORDERED: POTASSIUM CHLORIDE 25 MEQ EFFERVESCENT TAB PO ONE (22:45)
[2017-08-31 22:49] LABS: INTERNATIONAL NORMALIZED RATIO 1.6 RATIO; PROTHROMBIN TIME - PATIENT 16.5 SEC (9.8-11.6)
[2017-09-01] VITALS (7 sets, daily range): BP systolic 97–115; BP diastolic 50–59; PULSE 59–70; RESP 14–20; TEMP 96.8–98.6; O2SAT 97–100
[2017-09-01] MEDS ORDERED: NALOXONE HCL 0.4 MG/ML AMP IV PUSH PRN (02:30)
[2017-09-01] MEDS ORDERED: SODIUM CHLORIDE 0.9% FLUSH 10 ML FLUSH IV FLUSH PRN (02:30)
[2017-09-01] MEDS ORDERED: ACETAMINOPHEN 325 MG TAB PO PRN (02:30)
[2017-09-01] MEDS ORDERED: POTASSIUM CHLORIDE 25 MEQ EFFERVESCENT TAB PO ONE (03:15)
--- NOTE | 2017-09-01 03:16 | HHI.HP ---
[facility] Denisha Frausto MD Admission Diagnosis Dehydration, Generalized weakness, diarrhea Diagnoses: Travel History International Travel<30 Days: No Contact w/Intl Traveler <30 Da: No Traveled to Known Affected Are: No History of Present Illness 76-year-old male with a past medical history significant for atrial fibrillation anticoagulated on Coumadin, CHF, CAD, hypertension, Parkinson's and bladder outlet obstruction with suprapubic catheter presents to the emergency department for the evaluation of progressively worsening weakness. The patient is sleepy during her interview and will tell me his name but does not answer my other questions. History obtained from ED documentation. Per the patient's son, the patient has become increasingly weak over the last week he has had diarrhea approximately 10 times per day. He has had poor p.o. intake. EMS was called today as the patient had a decreased level of consciousness today. Review of Systems Except as stated in HPI: all other systems reviewed are Neg Past Family Social History Past Medical History (Obtained from medical records) atrial fibrillation CHF CAD s/p CABG x 4 1998 status post pacemaker implant 2012 hypertension Parkinson's Bladder outlet obstruction s/p suprapubic catheter placement Past Surgical History CABG x 4, 1998 Pacemaker, 2013 - [employer] [id number] Reported Medications Reported Meds & Active Scripts Active Furosemide 40 Mg Tab 40 Mg PO BID@ Ditropan (Oxybutynin Chloride) 5 Mg Tab 5 Mg PO Q8HR Reported Aspir-81 (Aspirin) 81 Mg Tabdr 81 Mg PO DAILY Warfarin 2 Mg Tab 2 Mg PO DAILY Donepezil 5 Mg Tab 5 Mg PO HS Carbidopa-Levodopa ER 50-200 Mg Tab 3 Tab PO TID Pacerone (Amiodarone HCl) 100 Mg Tab 100 Mg PO HS Allergies: Coded Allergies: No Known Allergies (Verified Allergy, Unknown, 08/31/17) Family History Patient denies any significant FMHX Social History Patient denies any tobacco use, EtOH consumption or illicit drug use. Physical Exam Vital Signs Vital Signs Date Time Temp Pulse Resp B/P (MAP) Pulse Ox O2 Delivery O2 Flow Rate FiO2 09/01/17 00:00 59 14 102/58 (73) 97 Room Air 08/31/17 22:00 60 14 114/66 (82) 99 08/31/17 21:43 98 Nasal Cannula 2.00 08/31/17 21:43 59 16 98 Nasal Cannula 2.00 08/31/17 21:36 97.5 60 16 110/67 (81) 98 Physical Exam GENERAL: Thin, elderly male lying in bed sleeping SKIN: No rashes, ecchymoses or lesions. Cool and dry. HEAD: Atraumatic. Normocephalic. No temporal or scalp tenderness. EYES: Pupils equal round and reactive. Extraocular motions intact. No scleral icterus. No injection or drainage. ENT: Nose without bleeding, purulent drainage or septal hematoma. Throat without erythema, tonsillar hypertrophy or exudate. Uvula midline. Airway patent. NECK: Trachea midline. No JVD or lymphadenopathy. Supple, nontender, no meningeal signs. CARDIOVASCULAR: Regular rate and rhythm. 3/6 KASEY. RESPIRATORY: Clear to auscultation. Breath sounds equal bilaterally. No wheezes , rales, or rhonchi. GASTROINTESTINAL: Abdomen soft, non-tender, nondistended. No hepato-splenomegaly , or palpable masses. No guarding. MUSCULOSKELETAL: Extremities without clubbing, cyanosis, or edema. No joint tenderness, effusion, or edema noted. No calf tenderness. NEUROLOGICAL: Drowsy. Arouses to voice. Will tell me his name but does not answer other questions. Follows commands. Moves all 4 extremities spontaneously. Laboratory Laboratory Tests Test 08/31/17 21:45 08/31/17 23:10 White Blood Count 8.0 Red Blood Count 3.77 Hemoglobin 10.4 Hematocrit 31.1 Mean Corpuscular Volume 82.6 Mean Corpuscular Hemoglobin 27.7 Mean Corpuscular Hemoglobin Concent 33.6 Red Cell Distribution Width 18.1 Platelet Count 292 Mean Platelet Volume 7.6 Neutrophils (%) (Auto) 77.6 Lymphocytes (%) (Auto) 14.9 Monocytes (%) (Auto) 5.6 Eosinophils (%) (Auto) 1.4 Basophils (%) (Auto) 0.5 Neutrophils # (Auto) 6.2 Lymphocytes # (Auto) 1.2 Monocytes # (Auto) 0.5 Eosinophils # (Auto) 0.1 Basophils # (Auto) 0.0 CBC Comment DIFF FINAL Differential Comment Prothrombin Time 16.5 Prothromb Time International Ratio 1.6 Activated Partial Thromboplast Time 36.9 Urine Color YELLOW Urine Turbidity CLOUDY Urine pH 5.5 Urine Specific [place] 1.019 Urine Protein 30 Urine Glucose (UA) NEG Urine Ketones NEG Urine Occult Blood MOD Urine Nitrite NEG Urine Bilirubin NEG Urine Urobilinogen 2.0 Urine Leukocyte Esterase LARGE Urine RBC 93 Urine WBC Urine Amorphous Sediment RARE Urine Bacteria MANY Microscopic Urinalysis Comment CULTURE INDICATED Blood Urea Nitrogen 35 Creatinine 1.33 Random Glucose 101 Total Protein 7.1 Albumin 2.6 Calcium Level 8.7 Magnesium Level 2.0 Alkaline Phosphatase 105 Aspartate Amino Transf (AST/SGOT) 12 Alanine Aminotransferase (ALT/SGPT) LESS THAN 6 Total Bilirubin 0.7 Sodium Level 140 Potassium Level 3.1 Chloride Level 103 Carbon Dioxide Level 29.5 Anion Gap 8 Estimat Glomerular Filtration Rate 52 Total Creatine Kinase 98 Troponin I 0.03 B-Type Natriuretic Peptide 289 Lipase 84 Date/Time Source Procedure Growth Status 08/31/17 23:10 Stool Stool Stool Pus (ALBERT) Pending Received 08/31/17 21:45 Urine Random Urine Urine Culture Pending Received Result Diagram: [id number]/[id number] Caprini VTE Risk Assessment Caprini VTE Risk Assessment: Mod/High Risk (score >= 2) Caprini Risk Assessment Model Point Value = 1 Point Value = 2 Point Value = 3 Point Value = 5 Age 41-60 Minor surgery BMI > 25 kg/m2 Swollen legs Varicose veins or History of unexplained or recurrent spontaneous Oral contraceptives or hormone replacement Sepsis (< 1 month) Serious lung disease, including pneumonia (< 1 month) Abnormal pulmonary function Acute myocardial infarction Congestive heart failure (< 1 month) History of inflammatory bowel disease Medical patient at bed rest Age 61-74 Arthroscopic surgery Major open surgery (> 45 min) Laparoscopic surgery (> 45 min) Malignancy Confined to bed (> 72 hours) Immobilizing plaster cast Central venous access Age >= 75 History of VTE Family history of VTE Factor V Leiden Prothrombin [id number] Lupus anticoagulant Anticardiolipin antibodies Elevated serum homocysteine Heparin-induced thrombocytopenia Other congenital or acquired thrombophilia Stroke (< 1 month) Elective arthroplasty Hip, pelvis, or leg fracture Acute spinal cord injury (< 1 month) Prophylaxis Regimen Total Risk Factor Score Risk Level Prophylaxis Regimen 0-1 Low Early ambulation 2 Moderate Order ONE of the following: *Sequential Compression Device (SCD) *Heparin 5000 units SQ BID 3-4 Higher Order ONE of the following medications: *Heparin 5000 units SQ TID *Enoxaparin/Lovenox 40 mg SQ daily (WT < 150 kg, CrCl > 30 mL/min) *Enoxaparin/Lovenox 30 mg SQ daily (WT < 150 kg, CrCl > 10-29 mL/min) *Enoxaparin/Lovenox 30 mg SQ BID (WT < 150 kg, CrCl > 30 mL/min) AND/OR *Sequential Compression Device (SCD) 5 or more Highest Order ONE of the following medications: *Heparin 5000 units SQ TID (Preferred with Epidurals) *Enoxaparin/Lovenox 40 mg SQ daily (WT < 150 kg, CrCl > 30 mL/min) *Enoxaparin/Lovenox 30 mg SQ daily (WT < 150 kg, CrCl > 10-29 mL/min) *Enoxaparin/Lovenox 30 mg SQ BID (WT < 150 kg, CrCl > 30 mL/min) AND *Sequential Compression Device (SCD) Assessment and Plan Assessment and Plan Assessment/plan: 1. Generalized weakness Likely secondary to diarrhea and decreased p.o. intake Physical therapy consulted Gentle IV fluid hydration as patient with history of CHF 2. Diarrhea C. difficile pending 3. CHF BNP 289 Patient does not clinically appear to be volume overloaded Continue home Lasix 4. Atrial fibrillation Continue home amiodarone and anticoagulation with warfarin 5. Subtherapeutic INR INR 1.6 Pharmacy consulted to assist with Coumadin dosing 6. Parkinson's disease Continue home carbidopa/levodopa 7. Hypokalemia s/p po repletion f/u BMP FEN Regular diet NS at 42 cc/hr Electrolytes: as above Coumadin Stephanie Anthony MD Sep 01, 2017 03:16
[2017-09-01] MEDS: SODIUM CHLOR 0.9% 1000 ML INJ 1,000 ML IV SCH (04:19)
[2017-09-01] MEDS: OXYBUTYNIN CHLORIDE 5 MG TAB PO SCH ×3 (05:40→21:24)
[2017-09-01] MEDS ORDERED: metroNIDAZOLE 500 MG TAB PO SCH (06:00)
[2017-09-01] MEDS: SODIUM CHLORIDE 0.9% FLUSH 10 ML FLUSH IV FLUSH SCH ×2 (07:45→21:00)
[2017-09-01] MEDS: ASPIRIN EC 81 MG TABEC PO SCH ×2 (09:00→10:02)
[2017-09-01] MEDS: LEVODOPA/CARBIDOPA 1 TAB TABCR PO SCH ×4 (09:00→16:18)
[2017-09-01] MEDS: FUROSEMIDE 40 MG TAB PO SCH ×2 (09:00→10:03)
--- NOTE | 2017-09-01 10:23 | HHI.PR ---
Subjective Remarks Follow up for weakness, diarrhea, +Cdiff. The patient is seen with his and son at bedside. He is awake, alert, oriented to self and hospital only. Family reports significant decline over the past week with multiple episodes of diarrhea 10+ daily. He has also had recent decreased oral intake. No reported fever/chills. His suprapubic tube was recently changed 1 week ago by [facility] nurse. The tube is changed once monthly. The son believes the patient was last on antibiotics in May for UTI. Denies any erythema/drainage around the suprapubic tube site. Denies any other medical complaints at this time. Objective Vitals Vital Signs Date Time Temp Pulse Resp B/P (MAP) Pulse Ox O2 Delivery O2 Flow Rate FiO2 09/01/17 08:30 96.8 60 20 97/53 (68) 100 09/01/17 03:00 70 14 100/50 (67) 97 Room Air 09/01/17 00:00 59 14 102/58 (73) 97 Room Air 08/31/17 22:00 60 14 114/66 (82) 99 08/31/17 21:43 98 Nasal Cannula 2.00 08/31/17 21:43 59 16 98 Nasal Cannula 2.00 08/31/17 21:36 97.5 60 16 110/67 (81) 98 I/O 08/31/17 08/31/17 08/31/17 09/01/17 09/01/17 09/01/17 07:00 15:00 23:00 07:00 15:00 23:00 Intake Total 250 ml 250 ml 240 ml Output Total 450 ml Balance 250 ml 250 ml -210 ml Intake Oral 240 ml IV Total 250 ml 250 ml Output Urine Total 450 ml # Voids 0 # Bowel Movements 1 Result Diagram: 08/31/17214408/31/172144 Imaging Last Impressions Head CT 08/31/172138 Signed Impressions: Service Date/Time: Thursday, August 31, 2017 22:15 - CONCLUSION: 1. Cerebral atrophy. 2. No acute intracranial abnormality Clinton English MD Chest X-Ray 08/31/172138 Signed Impressions: Service Date/Time: Thursday, August 31, 2017 21:58 - CONCLUSION: Cardiomegaly and CABG. Clinton English MD Objective Remarks GENERAL: Well-developed thin elderly male patient in NAD. SKIN: Warm and dry. Bilateral heels with ulcers, currently covered with dressings, CDI. HEENT: Atraumatic. Normocephalic. Pupils equal and round. Mucous membranes pink and moist. NECK: Trachea midline. CARDIOVASCULAR: Regular rate and rhythm. 2/6 systolic murmur noted. RESPIRATORY: No accessory muscle use. Clear to auscultation. Breath sounds equal bilaterally. GASTROINTESTINAL: Abdomen soft, non-tender, nondistended. Normoactive bowel sounds x4. GENITOURINARY: Suprapubic catheter in place at RLQ, no surrounding erythema. MUSCULOSKELETAL: Extremities without clubbing, cyanosis, or edema. No obvious deformities. NEUROLOGICAL: Awake and alert, oriented to self and hospital only. No obvious cranial nerve deficits. Patient with 5/5 strength of plantar/dorsiflexion bilaterally, however 3-4/5 strength with hip flexion bilaterally. 5/5 strength of bilateral upper and lower extremities. Normal speech. PSYCHIATRIC: Appropriate mood and affect; insight and judgment limited. Medications and IVs Current Medications Medications (Trade) Dose Ordered Sig/Riana Route Start Time Stop Time Status Last Admin (NS Flush) 2 ml UNSCH PRN IV FLUSH 09/01/17 02:30 (NS Flush) 2 ml BID IV FLUSH 09/01/17 09:00 (Tylenol) 650 mg Q4H PRN PO 09/01/17 02:30 (Narcan Inj) 0.4 mg UNSCH PRN IV PUSH 09/01/17 02:30 (Ecotrin Ec) 81 mg DAILY PO 09/01/17 09:00 09/01/17 10:02 (Sinemet Cr 50-200 Mg) 3 tab TID PO 09/01/17 09:00 09/01/17 10:03 (Aricept) 5 mg HS PO 09/01/17 21:00 (Lasix) 40 mg BID@09,18 PO 09/01/17 09:00 09/01/17 10:03 (Ditropan) 5 mg Q8HR PO 09/01/17 06:00 09/01/17 05:40 (Coumadin) 2 mg DAILY@1600 PO 09/01/17 16:00 (Cordarone) 100 mg HS PO 09/01/17 21:00 Pharmacy Profile Note 0 ml @ 0 mls/hr UNSCH OTHER 09/01/17 02:30 Sodium Chloride 1,000 ml @ 42 mls/hr [id number] IV 09/01/17 03:15 09/01/17 04:19 (Pneumovax-23 Inj) 25 mcg ONCE ONCE IM 09/02/17 10:00 09/02/17 10:01 (Flu (Quadrivalent) Vaccine Inj) 0.5 ml ONCE ONCE IM 09/02/17 10:00 09/02/17 10:01 (Coumadin Booklet) 1 ONCE ONCE OTHER 09/01/17 15:00 09/01/17 15:01 (VANCOMYCIN for oral use only) 125 mg QID PO 09/01/17 13:00 UNV A/P Assessment and Plan 76-year-old male with a past medical history significant for atrial fibrillation anticoagulated on Coumadin, CHF, CAD, hypertension, Parkinson's and bladder outlet obstruction with suprapubic catheter presents to the emergency department for the evaluation of progressively worsening weakness and recent diarrhea. Generalized weakness: suspect multifactorial secondary to Parkinson's in combination with diarrhea/Cdiff. Possible UTI. -Treat Cdiff with abx, see below -Consult PT/OT -Gentle IV fluid hydration as patient with history of CHF -Consult palliative care C.difficile Diarrhea: patient with 1 week of intractable diarrhea. Son reports last antibiotic use likely in May. -Started on Vanco 125mg po qid [id number] (complete treatment on 09/14) -monitor bowel movements -start lactinex Abnormal UA: with suprapubic catheter. Afebrile, no leukocytosis. -hold off on antibiotics for now and await urine culture, patient may be colonized with presence of suprapubic tube -consider ID consult depending on results of culture -if urine culture positive, may also need suprapubic tube changed by IR ( last changed 1 week ago) Chronic Diastolic CHF: EMR reviewed, recent echocardiograms from July 2014 and May 2017 with EF 55-60%, mild MR, mild TR. -BNP 289, patient does not clinically appear to be volume overloaded -Hold patient's home lasix for now -Continue gentle IVF hydration and monitor closely for fluid overload Atrial fibrillation: chronic, has pacemaker -Continue home amiodarone -Continue anticoagulation with warfarin, monitor INR, currently subtherapeutic at 1.6 Subtherapeutic INR: INR 1.6 -Pharmacy consulted to assist with Coumadin dosing Parkinson's disease: chronic, patient mostly bed bound secondary to parkinson's -Continue home carbidopa/levodopa -patient sees neurologist in [place], continue outpatient f/up Hypokalemia: secondary to recent diarrhea -s/p po KCl repletion -Repeat BMP with K 3.9 -monitor Sacral/Heel Ulcers: chronic, present on admission -consult wound care nurse -pressure ulcer prevention protocol and heel raisers DVT Prophylaxis: anticoagulated on Coumadin Discharge Planning Not yet ready for discharge. Continue treatment for Cdiff. Await urine culture. Await palliative care consultation. Patient with minimal help at home due to insurance barriers. Previously did not qualify for SNF/rehab on previous admission. Currently he has a nurse that visits once a week for wound dressing changes, and also changes suprapubic tube once monthly. Torri Briceño PA-C Sep 01, 2017 10:22 am
[2017-09-01 11:13] LABS: AUTOMATED NEUTROPHIL # 6.3 TH/MM3 (1.8-7.7); BASOPHIL % 0.4 % (0.0-2.0); EOSINOPHIL # 0.1 TH/MM3 (0-0.4); EOSINOPHIL % 1.2 % (0.0-4.0); HEMATOCRIT 29.1 % (39.0-51.0); HEMOGLOBIN 9.9 GM/DL (13.0-17.0); LYMPH % 8.4 % (9.0-44.0); LYMPHOCYTE # 0.6 TH/MM3 (1.0-4.8); MEAN CELL VOLUME 82.3 FL (80.0-100.0); MEAN CORPUSCULAR HEMOGLOBIN 28.1 PG (27.0-34.0); MEAN CORPUSCULAR HGB CONC 34.1 % (32.0-36.0); MEAN PLATELET VOLUME 7.9 FL (7.0-11.0); MONO % 4.4 % (0.0-8.0); MONOCYTE # 0.3 TH/MM3 (0-0.9); NEUT % 85.6 % (16.0-70.0); PLATELET COUNT 261 TH/MM3 (150-450); RED BLOOD COUNT 3.53 MIL/MM3 (4.50-5.90); RED CELL DISTRIBUTION WIDTH 17.9 % (11.6-17.2); WHITE BLOOD COUNT 7.3 TH/MM3 (4.0-11.0)
[2017-09-01 11:37] LABS: BICARBONATE 30.2 MEQ/L (21.0-32.0); CALCIUM 8.7 MG/DL (8.5-10.1); CREATININE 1.2 MG/DL (0.60-1.30)
[2017-09-01] MEDS: LACTOBACILLUS ACIDOPHILUS TAB PO SCH ×2 (16:15→16:17)
[2017-09-01] MEDS: VANCOMYCIN 500 MG VIAL (FOR ORAL USE ONLY) PO SCH ×3 (16:15→21:24)
[2017-09-01] MEDS: WARFARIN SOD 2 MG TAB PO SCH (16:16)
--- NOTE | 2017-09-01 17:35 | PD.CONS ---
Consult Service Palliative Care . Consult Requested By DONELL Van/ Dr. Suárez . Primary Care Physician Denisha Frausto MD . Reason for Consultation a. To assist with evaluation and management of symptoms including: malnutrition, weakness, diarrhea. b. To assist medical decision maker(s) with: better understanding of current medical conditions; weighing benefits/burdens of medical treatment options; making medical treatment decisions. . HPI History of Present Illness Mr. Quispe is a 76-year-old male with a past medical history of Parkinson's Disease, atrial fibrillation on Coumadin, CHF, CAD, hypertension recent hypotension and bladder outlet obstruction with suprapubic catheter. Patient was previously admitted in June 06 for CHF exacerbation, syncope. Patient presented to [facility] emergency department on 09/01/17 via EMS for progressively worsening weakness, diarrhea and decreased appetite over the past week. He was also more lethargic. Review of labs and imaging: * VS: Temp 97.5, pulse 59, respiration 14, BP 102/58, oxygen saturation 97% on 2 L nasal cannula * WBC 8.0, hemoglobin 10.4, hematocrit 31.1, platelet count 292, neutrophils 77.6% * PT 16.5, INR 1.6, PTT 36.9 * Urinalysis positive for leukocyte esterase, bacteria, culture preliminarily positive gram-negative rods. * BUN 35 creatinine 1.33, glucose 101, calcium 8.7, magnesium 2.0, sodium 140, potassium 3.1, chloride 103, carbon dioxide 29.5, GFR 52 * alkaline phosphatase 105, AST 12, ALT 6, total bilirubin 0.7 * Total protein 7.1, albumin 2.6 * Weight 50 kg * Total creatine kinase 98, troponin 0 0.03 * BNP 289 * Lipase 84 * CT head - cerebral atrophy, no acute intracranial abnormality. * Chest x-ray - cardiomegaly and CABG * C. Diff tox - positive Patient started on oral Vancomycin for C. Diff. PT consulted for weakness. Palliative care was consulted to assist with further clarification of medical treatment goals in this patient with advanced Parkinson's, C. difficile, possible UTI, pressure ulcers and significant functional decline. Patient seen and examined in Hpod of the emergency department. and son, Carlos at bedside. Patient answers a few simple yes or no questions and falls off to sleep. Family indicates that he does not appear painful, no shortness of breath. Indicates he may have be having hallucinations or what family describes as dreams of his past, nothing reported as frightening. Patient has had diarrhea multiple times per day. Patient is unable to quantify or qualify symptoms at this time. . Function/Cognitive Trajectory Patient has been bedbound for approximately 4 months. Was diagnosed with Parkinson's 6 or 7 years ago. No reported difficulty swallowing, though eats more soft foods given loss of some teeth. Eats very slow secondary to Parkinson 's, drinks fluids. Dependent for all care needs. . Review of Systems ROS Limitations: Altered Mental Status (Lethargic ROS per son and 's report at bedside.) Constitutional: COMPLAINS OF: Fatigue (Sleeps about 20 hours per day), Weight loss (Has been losing about 5 pounds per month for many months family reports significant weight loss, unable to quantify), Change in appetite (Decreased oral intake), Generalized weakness (Bedbound dependent for all needs) Endocrine: DENIES: Heat/cold intolerance, Polydipsia, Polyuria, Polyphagia Eyes: COMPLAINS OF: Blurred vision (wears glasses) Ears, nose, mouth, throat: DENIES: Tinnitus, Hearing loss, Vertigo, Nasal discharge, Oral lesions, Throat pain, Hoarseness, Ear Pain, Running Nose, Epistaxis, Sinus Pain, Toothache, Odynophagia Respiratory: DENIES: Apneas, Cough, Snoring, Wheezing, Hemoptysis, Sputum production, Shortness of breath Cardiovascular: DENIES: Chest pain, Palpitations, Syncope, Dyspnea on Exertion , PND, Lower Extremity Edema, Orthopnea, Claudication Gastrointestinal: COMPLAINS OF: Abdominal pain, Diarrhea (Increased over the past week), Anorexia, DENIES: Black stools, Bloody stools, Constipation, Nausea , Vomiting, Difficulty Swallowing, Dyspepsia or heartburn, Excessive gas, Bloating, Vomiting blood Musculoskeletal: COMPLAINS OF: Back pain Integumentary: COMPLAINS OF: Non-healing sores (Bilateral heels and coccyx wounds) Hematologic/Lymphatics: COMPLAINS OF: Bruising Neurologic: COMPLAINS OF: Speech Problems (Slow to respond given Parkinson's, speaks Belgian), Poor Balance (Unable to stand independently) Psychiatric: COMPLAINS OF: Hallucinations (Dreams of his past, none frightening ) Other ROS: Blood pressure drops with repositioning Past Family Social History Coded Allergies: No Known Allergies (Verified Allergy, Unknown, 08/31/17) Past Medical History (Obtained from medical records) atrial fibrillation CHF CAD s/p CABG x 4 1998 status post pacemaker implant 2013 hypertension Parkinson's Bladder outlet obstruction s/p suprapubic catheter placement Past Surgical History CABG x 4 (1998) Pacemaker, 2013 - [employer] [id number] Cardiac catheterization Appendectomy Suprapubic catheter placement . Reported Medications Reported Meds & Active Scripts Active Furosemide 40 Mg Tab 40 Mg PO BID@ Ditropan (Oxybutynin Chloride) 5 Mg Tab 5 Mg PO Q8HR Reported Aspir-81 (Aspirin) 81 Mg Tabdr 81 Mg PO DAILY Warfarin 2 Mg Tab 2 Mg PO DAILY Donepezil 5 Mg Tab 5 Mg PO HS Carbidopa-Levodopa ER 50-200 Mg Tab 3 Tab PO TID Pacerone (Amiodarone HCl) 100 Mg Tab 100 Mg PO HS . Current Medications Medications (Trade) Dose Ordered Sig/Riana Route Start Time Stop Time Status Last Admin (NS Flush) 2 ml UNSCH PRN IV FLUSH 09/01/17 02:30 (NS Flush) 2 ml BID IV FLUSH 09/01/17 09:00 (Tylenol) 650 mg Q4H PRN PO 09/01/17 02:30 (Narcan Inj) 0.4 mg UNSCH PRN IV PUSH 09/01/17 02:30 (Ecotrin Ec) 81 mg DAILY PO 09/01/17 09:00 09/01/17 10:02 (Sinemet Cr 50-200 Mg) 3 tab TID PO 09/01/17 09:00 09/01/17 16:16 (Aricept) 5 mg HS PO 09/01/17 21:00 (Lasix) 40 mg BID@,18 PO 09/01/17 09:00 Future Hold 09/01/17 10:03 (Ditropan) 5 mg Q8HR PO 09/01/17 06:00 09/01/17 16:16 (Coumadin) 2 mg DAILY@1600 PO 09/01/17 16:00 09/01/17 16:16 (Cordarone) 100 mg HS PO 09/01/17 21:00 Pharmacy Profile Note 0 ml @ 0 mls/hr UNSCH OTHER 09/01/17 02:30 Sodium Chloride 1,000 ml @ 42 mls/hr [id number] IV 09/01/17 03:15 09/01/17 04:19 (Pneumovax-23 Inj) 25 mcg ONCE ONCE IM 09/02/17 10:00 09/02/17 10:01 (Flu (Quadrivalent) Vaccine Inj) 0.5 ml ONCE ONCE IM 09/02/17 10:00 09/02/17 10:01 (VANCOMYCIN for oral use only) 125 mg QID PO 09/01/17 13:00 09/15/17 12:59 09/01/17 16:15 (Lactinex) 1 tab TID PO 09/01/17 13:00 09/01/17 16:15 Family History Father , history of HTN, DM. Mother in her 80s unknown cause. . Substance Use Tobacco: none. Alcohol:none. Prescription med abuse:none. Illicits:none. . Psychosocial History since 1968. They have 2 children, Carlos and Tamer. From [place]. Moved to [place] in 2014. Lives in [place]. Retired retail banking manager. . Spiritual/Cultural Factors Unknown. . Living Will: Never completed Health Care Surrogate: Never completed Durable Power of Knife Grinder: Never completed Health Care Surrogate(s): Patient is not appear capacitated to make his own healthcare decisions. No written advanced directives, according to [place] statutes, healthcare proxy decision making falls to his spouse. I suspect will rely on the assistance of her sons to make decisions. . Today's verbally stated goals: Patient is not appear capacitated to make his own healthcare decisions. . Family/friends goals: Goals remain aggressive including FULL CODE, treatment of infection, etc. . Ethical and Legal Issues Patient is not appear capacitated to make his own healthcare decisions. No written advanced directives, according to [place] statutes, healthcare proxy decision making falls to his spouse. I suspect will rely on the assistance of her sons to make decisions. . Physical Exam Vital Signs Date Time Temp Pulse Resp B/P (MAP) Pulse Ox O2 Delivery O2 Flow Rate FiO2 09/01/17 16:09 60 09/01/17 15:48 97.7 61 16 99/54 (69) 100 09/01/17 13:30 98.5 60 16 115/59 (77) 100 09/01/17 08:30 96.8 60 20 97/53 (68) 100 09/01/17 03:00 70 14 100/50 (67) 97 Room Air 09/01/17 00:00 59 14 102/58 (73) 97 Room Air 08/31/17 22:00 60 14 114/66 (82) 99 08/31/17 21:43 98 Nasal Cannula 2.00 08/31/17 21:43 59 16 98 Nasal Cannula 2.00 08/31/17 21:36 97.5 60 16 110/67 (81) 98 09/01/17 09/02/17 19:00 07:00 Intake Total 240 ml Output Total 450 ml Balance -210 ml Intake Oral 240 ml Output Urine Total 450 ml Exam CONSTITUTIONAL/GENERAL: This is an elderly, frail, cachectic patient, in no apparent distress. TUBES/LINES/DRAINS: PIV, suprapubic catheter. SKIN: Ecchymoses on upper extremities. Bilateral heel wound dressings in place , unable to visualize wounds. Reported wound to coccyx, not visualized. Skin temperature appropriate. Not diaphoretic. HEAD: Atraumatic. Normocephalic. EYES: Eyes closed. ENT: Hearing appears grossly normal. Nose without bleeding or purulent drainage. Poor dentition. NECK: Trachea midline. CARDIOVASCULAR: Regular rate and rhythm, systolic murmur noted. No JVD. RESPIRATORY/CHEST: Symmetric, unlabored respirations. Diminished breath sounds. GASTROINTESTINAL: Abdomen soft, non-tender, nondistended. No guarding. Bowel sounds present. GENITOURINARY: Without palpable bladder distension. Suprapubic catheter in place. MUSCULOSKELETAL: Extremities without clubbing, cyanosis, or edema. No mottling or clubbing. LYMPHATICS: No palpable cervical or supraclavicular adenopathy. NEUROLOGICAL: Awakens briefly, lethargic. PSYCHIATRIC: Son reports hallucinations, none seen during my visit. . Diagnostic Tests Laboratory Laboratory Tests Test 08/31/17 21:45 08/31/17 23:10 09/01/17 10:55 White Blood Count 8.0 TH/MM3 (4.0-11.0) 7.3 TH/MM3 (4.0-11.0) Red Blood Count 3.77 MIL/MM3 (4.50-5.90) 3.53 MIL/MM3 (4.50-5.90) Hemoglobin 10.4 GM/DL (13.0-17.0) 9.9 GM/DL (13.0-17.0) Hematocrit 31.1 % (39.0-51.0) 29.1 % (39.0-51.0) Mean Corpuscular Volume 82.6 FL (80.0-100.0) 82.3 FL (80.0-100.0) Mean Corpuscular Hemoglobin 27.7 PG (27.0-34.0) 28.1 PG (27.0-34.0) Mean Corpuscular Hemoglobin Concent 33.6 % (32.0-36.0) 34.1 % (32.0-36.0) Red Cell Distribution Width 18.1 % (11.6-17.2) 17.9 % (11.6-17.2) Platelet Count 292 TH/MM3 (150-450) 261 TH/MM3 (150-450) Mean Platelet Volume 7.6 FL (7.0-11.0) 7.9 FL (7.0-11.0) Neutrophils (%) (Auto) 77.6 % (16.0-70.0) 85.6 % (16.0-70.0) Lymphocytes (%) (Auto) 14.9 % (9.0-44.0) 8.4 % (9.0-44.0) Monocytes (%) (Auto) 5.6 % (0.0-8.0) 4.4 % (0.0-8.0) Eosinophils (%) (Auto) 1.4 % (0.0-4.0) 1.2 % (0.0-4.0) Basophils (%) (Auto) 0.5 % (0.0-2.0) 0.4 % (0.0-2.0) Neutrophils # (Auto) 6.2 TH/MM3 (1.8-7.7) 6.3 TH/MM3 (1.8-7.7) Lymphocytes # (Auto) 1.2 TH/MM3 (1.0-4.8) 0.6 TH/MM3 (1.0-4.8) Monocytes # (Auto) 0.5 TH/MM3 (0-0.9) 0.3 TH/MM3 (0-0.9) Eosinophils # (Auto) 0.1 TH/MM3 (0-0.4) 0.1 TH/MM3 (0-0.4) Basophils # (Auto) 0.0 TH/MM3 (0-0.2) 0.0 TH/MM3 (0-0.2) CBC Comment DIFF FINAL DIFF FINAL Differential Comment Prothrombin Time 16.5 SEC (9.8-11.6) Prothromb Time International Ratio 1.6 RATIO Activated Partial Thromboplast Time 36.9 SEC (24.3-30.1) Urine Color YELLOW (YELLW/STRAW) Urine Turbidity CLOUDY (CLEAR) Urine pH 5.5 (5.0-8.5) Urine Specific [place] 1.019 (1.002-1.035) Urine Protein 30 mg/dL (NEG-TRACE) Urine Glucose (UA) NEG mg/dL (NEG) Urine Ketones NEG mg/dL (NEG) Urine Occult Blood MOD (NEG) Urine Nitrite NEG (NEG) Urine Bilirubin NEG (NEG) Urine Urobilinogen 2.0 MG/DL (LESS THAN Urine Leukocyte Esterase LARGE (NEG) Urine RBC 93 /hpf (0-3) Urine WBC /hpf (0-5) Urine Amorphous Sediment RARE Urine Bacteria MANY /hpf (NONE) Microscopic Urinalysis Comment CULTURE INDICATED Blood Urea Nitrogen 35 MG/DL (7-18) 37 MG/DL (7-18) Creatinine 1.33 MG/DL (0.60-1.30) 1.20 MG/DL (0.60-1.30) Random Glucose 101 MG/DL (74-106) 107 MG/DL (74-106) Total Protein 7.1 GM/DL (6.4-8.2) Albumin 2.6 GM/DL (3.4-5.0) Calcium Level 8.7 MG/DL (8.5-10.1) 8.7 MG/DL (8.5-10.1) Magnesium Level 2.0 MG/DL (1.5-2.5) Alkaline Phosphatase 105 U/L (45-117) Aspartate Amino Transf (AST/SGOT) 12 U/L (15-37) Alanine Aminotransferase (ALT/SGPT) LESS THAN 6 U/L (12-78) Total Bilirubin 0.7 MG/DL (0.2-1.0) Sodium Level 140 MEQ/L (136-145) 141 MEQ/L (136-145) Potassium Level 3.1 MEQ/L (3.5-5.1) 3.9 MEQ/L (3.5-5.1) Chloride Level 103 MEQ/L (98-107) 103 MEQ/L (98-107) Carbon Dioxide Level 29.5 MEQ/L (21.0-32.0) 30.2 MEQ/L (21.0-32.0) Anion Gap 8 MEQ/L (5-15) 8 MEQ/L (5-15) Estimat Glomerular Filtration Rate 52 ML/MIN (>89) 59 ML/MIN (>89) Total Creatine Kinase 98 U/L (39-308) Troponin I 0.03 NG/ML (0.02-0.05) B-Type Natriuretic Peptide 289 PG/ML (0-100) Lipase 84 U/L (73-393) Stool C. difficile Toxin (PCR) POSITIVE (NEGATIVE) Stl C. difficile Toxin Epiderm 027 PRESUMPTIVE NEGATIVE Result Diagram: 09/01/17 1055 09/01/17 105 Microbiology Microbiology Date/Time Source Procedure Growth Status 08/31/17 23:10 Stool Stool Stool Pus (ALBERT) - Final FEW WBC'S Complete 08/31/17 23:10 Stool Stool Pending Received 08/31/17 21:45 Urine Random Urine Urine Culture - Preliminary Gram Negative Marcell Resulted Imaging Last Impressions Head CT 08/31/172138 Signed Impressions: Service Date/Time: Thursday, August 31, 2017 22:15 - CONCLUSION: 1. Cerebral atrophy. 2. No acute intracranial abnormality Clinton English MD Chest X-Ray 08/31/172138 Signed Impressions: Service Date/Time: Thursday, August 31, 2017 21:58 - CONCLUSION: Cardiomegaly and CABG. Clinton English MD . Patient/Family Conference Present at Family Conference: Met with patient (he did not participate in conversation), son (Carlos) and at bedside. . Family Conference Time (mins): 60 Family Conference Location: Bedside Issues Discussed: * Palliative care role, purpose, approach * Additional medical, psychosocial, and spiritual history * Patients general health, functional status, and cognitive changes in the months leading up to the current hospitalization * Patient/family understanding of the current medical problems * Advance directives - none. * CODE STATUS - family desires FULL CODE * Questions answered to the best of my ability * Palliative care contact information provided . Assessment and Plan Disease Oriented Problem List: (1) Suprapubic catheter (2) Generalized weakness (3) Diarrhea (4) Chronic anticoagulation (5) CHF (congestive heart failure) (6) Urinary tract infection (7) Acute on chronic diastolic CHF (congestive heart failure) (8) Parkinson's disease Comment: End stage (9) Atrial fibrillation (10) CAD (coronary artery disease) (11) Bladder outlet obstruction Comment: S/P suprapubic catheter. (12) Hypokalemia (13) Chronic kidney disease (CKD) Symptom Scale: (1) Weakness 0-10 Scale: Unable to quantify Comment: Due to End Stage Parkinson's disease . (2) Malnutrition Comment: Weight 50 kg, Albumin 2.6. (3) Diarrhea 0-10 Scale: Unable to quantify Comment: due to C. Diff. Pertinent Non-Medical Issues Psychosocial: From [place], speaks Belgian. with 2 sons. Spiritual: Unknown. Legal: Patient is not appear capacitated to make his own healthcare decisions. No written advanced directives, according to [place] statutes, healthcare proxy decision making falls to his spouse. I suspect will rely on the assistance of her sons to make decisions. Ethical issues impacting care: No known concerns at this time. . Important Contacts * Carlos Galaviz, son: [phone] * Malena Galaviz, son: [phone] . Prognosis Mr. Quispe is a 76-year-old man with likely end-stage Parkinson's disease, C. difficile, possible UTI with significant trajectory of nutritional and functional decline over the past 4-6 months. Patient has a life expectancy of 6 months or less. Hospice appropriate if goals are comfort oriented. . Code Status: Full Code Plan * Patient is not appear capacitated to make his own healthcare decisions. No written advanced directives, according to [place] statutes, healthcare proxy decision making falls to his spouse. I suspect will rely on the assistance of her sons to make decisions. * FULL CODE * Met with and son: Goals are aggressive including FULL CODE and treatment of infections. * SYMPTOMS: Weakness: due to progressive, likely end stage Parkinson's disease. PT ordered. Malnutrition: weight 50kg, albumin 2.6. Eating small amounts and drinking fluids per family, will monitor intake. Diarrhea: due to C. Diff. On Vancomycin. No new medication recommendations at this time. * Palliative care number provided. * Palliative care will continue to follow to assist with symptom management and further clarification of medical treatment goals. . Thank you for the opportunity to participate in the care of Mr. Quispe. Attestation To help prompt me to consider important information that might be impacting today's encounter and assessment, information from prior notes written by myself or my colleagues may have been "brought forward" into today's note. My signature on this note, however, is an attestation that I personally performed the exam, history, and/or decision-making noted today, and, unless otherwise indicated, the interactions with patient, family, and staff as well as the review of records all occurred today. I also attest that the listed assessment and stated plan reflect my best clinical judgment today based on the combination of historical information, prior notes, and today's exam/ interactions. When time spent is documented, it refers only to time spent today by the signer, or if indicated, combined time spent today by collaborating physician/nurse practitioner. Randa Bonilla Sep 01, 2017 17:35
[2017-09-01] MEDS: AMIODARONE 200 MG TAB PO SCH (21:24)
[2017-09-01] MEDS: DONEPEZIL HCL 5 MG TAB PO SCH (21:24)
--- NOTE | 2017-09-01 22:40 | EKG ---
Date Performed: 08/31/2017 Time Performed: 21:51:18 PTAGE: 76 years EKG: ELECTRONIC ATRIAL PACEMAKER LEFT BUNDLE BRANCH BLOCK ABNORMAL ECG PREVIOUS TRACING : 06/06/2017 03.06 Since the previous tracing, no significant change noted DOCTOR: Jose R Abrams Interpretating Date/Time 09/01/2017 22:39:42
[2017-09-02] MEDS: SODIUM CHLOR 0.9% 1000 ML INJ 1,000 ML IV SCH (03:04)
[2017-09-02 04:33] VITALS: BP 104/56; PULSE 60; RESP 16; O2SAT 99
[2017-09-02] MEDS: OXYBUTYNIN CHLORIDE 5 MG TAB PO SCH ×3 (07:11→22:30)
[2017-09-02 07:38] VITALS: BP 116/58; PULSE 60; RESP 16; TEMP 97.4; O2SAT 100
[2017-09-02 07:50] LABS: INTERNATIONAL NORMALIZED RATIO 1.8 RATIO; PROTHROMBIN TIME - PATIENT 17.8 SEC (9.8-11.6)
[2017-09-02] MEDS: ASPIRIN EC 81 MG TABEC PO SCH (08:22)
[2017-09-02] MEDS: LEVODOPA/CARBIDOPA 1 TAB TABCR PO SCH ×3 (08:22→17:52)
[2017-09-02] MEDS: LACTOBACILLUS ACIDOPHILUS TAB PO SCH ×3 (08:22→17:52)
[2017-09-02] MEDS: VANCOMYCIN 500 MG VIAL (FOR ORAL USE ONLY) PO SCH ×4 (08:22→22:30)
[2017-09-02] MEDS: SODIUM CHLORIDE 0.9% FLUSH 10 ML FLUSH IV FLUSH SCH ×2 (08:22→22:30)
--- NOTE | 2017-09-02 09:26 | HHI.PR ---
Subjective Remarks Follow up for C.difficile diarrhea, weakness, inability to care for self. The patient is sleeping upon my arrival, awakens to voice. No family at bedside. Discussed with RN, reports 1 episode of diarrhea overnight around 4am. The patient is oriented to self only this morning, appears drowsy. He denies any pain, abdominal pain, nausea/vomiting. He states he is hungry and wants breakfast. Denies fevers/chills. He denies any specific medical complaints. Vital signs reviewed and stable. Objective Vitals Vital Signs Date Time Temp Pulse Resp B/P (MAP) Pulse Ox O2 Delivery O2 Flow Rate FiO2 09/02/17 07:38 97.4 60 16 116/58 (77) 100 09/02/17 04:33 60 16 104/56 (72) 99 09/01/17 21:11 98.6 60 16 98/57 (71) 100 09/01/17 16:09 60 09/01/17 15:48 97.7 61 16 99/54 (69) 100 09/01/17 13:30 98.5 60 16 115/59 (77) 100 I/O 09/01/17 09/01/17 09/01/17 09/02/17 09/02/17 09/02/17 07:00 15:00 23:00 07:00 15:00 23:00 Intake Total 250 ml 240 ml Output Total 450 ml Balance 250 ml -210 ml Intake Oral 240 ml IV Total 250 ml Output Urine Total 450 ml # Bowel Movements 1 Result Diagram: 09/01/17 1055 09/01/17 1055 Imaging Last Impressions Head CT 08/31/172138 Signed Impressions: Service Date/Time: Thursday, August 31, 2017 22:15 - CONCLUSION: 1. Cerebral atrophy. 2. No acute intracranial abnormality Clinton English MD Chest X-Ray 08/31/172138 Signed Impressions: Service Date/Time: Thursday, August 31, 2017 21:58 - CONCLUSION: Cardiomegaly and CABG. Clinton English MD Objective Remarks GENERAL: Well-developed thin elderly male patient in NAD. SKIN: Warm and dry. Sacrum and Bilateral heels with ulcers, currently covered with dressings, CDI. HEENT: Atraumatic. Normocephalic. Pupils equal and round. Mucous membranes pink and moist. CARDIOVASCULAR: Regular rate and rhythm. 2/6 systolic murmur noted. RESPIRATORY: No accessory muscle use. Clear to auscultation. Breath sounds equal bilaterally. GASTROINTESTINAL: Abdomen soft, non-tender, nondistended. Normoactive bowel sounds x4. GENITOURINARY: Suprapubic catheter in place at RLQ, no surrounding erythema. MUSCULOSKELETAL: Extremities without clubbing, cyanosis, or edema. No obvious deformities. NEUROLOGICAL: Awake and alert, oriented to self and hospital only. No obvious cranial nerve deficits. Patient with 5/5 strength of plantar/dorsiflexion bilaterally, however 3-4/5 strength with hip flexion bilaterally. 5/5 strength of bilateral upper and lower extremities. Normal speech. PSYCHIATRIC: Appropriate mood and affect; insight and judgment limited. Medications and IVs Current Medications Medications (Trade) Dose Ordered Sig/Riana Route Start Time Stop Time Status Last Admin (NS Flush) 2 ml UNSCH PRN IV FLUSH 09/01/17 02:30 (NS Flush) 2 ml BID IV FLUSH 09/01/17 09:00 09/02/17 08:22 (Tylenol) 650 mg Q4H PRN PO 09/01/17 02:30 (Narcan Inj) 0.4 mg UNSCH PRN IV PUSH 09/01/17 02:30 (Ecotrin Ec) 81 mg DAILY PO 09/01/17 09:00 09/02/17 08:22 (Sinemet Cr 50-200 Mg) 3 tab TID PO 09/01/17 09:00 09/02/17 08:22 (Aricept) 5 mg HS PO 09/01/17 21:00 09/01/17 21:24 (Lasix) 40 mg BID@,18 PO 09/01/17 09:00 Future Hold 09/01/17 10:03 (Ditropan) 5 mg Q8HR PO 09/01/17 06:00 09/02/17 07:11 (Coumadin) 2 mg DAILY@1600 PO 09/01/17 16:00 09/01/17 16:16 (Cordarone) 100 mg HS PO 09/01/17 21:00 09/01/17 21:24 Pharmacy Profile Note 0 ml @ 0 mls/hr UNSCH OTHER 09/01/17 02:30 Sodium Chloride 1,000 ml @ 42 mls/hr [id number] IV 09/01/17 03:15 09/01/17 04:19 (VANCOMYCIN for oral use only) 125 mg QID PO 09/01/17 13:00 09/15/17 12:59 09/02/17 08:22 (Lactinex) 1 tab TID PO 09/01/17 13:00 09/02/17 08:22 A/P Assessment and Plan 76-year-old male with a past medical history significant for atrial fibrillation anticoagulated on Coumadin, CHF, CAD, hypertension, Parkinson's and bladder outlet obstruction with suprapubic catheter presents to the emergency department for the evaluation of progressively worsening weakness and recent diarrhea. Generalized weakness: suspect multifactorial secondary to worsening Parkinson's in combination with diarrhea/Cdiff. Possible UTI. -Treat Cdiff with abx, see below -Consult PT/OT, recommends returning to prior living situation (previously living at home with some [facility] due to insurance barriers) -Gentle IV fluid hydration as patient with history of CHF -Consult palliative care, appreciate assistance, patient is full code, would be hospice appropriate if family agrees C.difficile Diarrhea: patient with 1 week of intractable diarrhea. Son reports last antibiotic use likely in May. -Started on Vanco 125mg po qid [id number] (will complete treatment on 09/14) -monitor bowel movements, improving -started lactinex tid Abnormal UA: with suprapubic catheter. Afebrile, no leukocytosis. -hold off on antibiotics for now and await urine culture, patient may be colonized with presence of suprapubic tube -preliminary urine culture with gram negative rods -will consult ID for antibiotic recommendations -may also need suprapubic tube changed by IR (last changed 1 week ago), will defer to ID Chronic Diastolic CHF: EMR reviewed, recent echocardiograms from July 2014 and May 2017 with EF 55-60%, mild MR, mild TR. -BNP 289, patient does not clinically appear to be volume overloaded -Hold patient's home lasix for now -Continue gentle IVF hydration and monitor closely for fluid overload Atrial fibrillation: chronic, has pacemaker -Continue home amiodarone -Continue anticoagulation with warfarin, monitor INR, currently subtherapeutic at 1.8 Subtherapeutic INR: INR 1.6 -Pharmacy consulted to assist with Coumadin dosing Parkinson's disease: chronic, patient mostly bed bound secondary to parkinson's -Continue home carbidopa/levodopa -patient sees neurologist in [place], continue outpatient f/up Hypokalemia: secondary to recent diarrhea -s/p po KCl repletion -Repeat BMP with K 3.9 -monitor Sacral/Heel Ulcers: chronic, present on admission -consult wound care nurse, appreciate recommendations -pressure ulcer prevention protocol and heel raisers DVT Prophylaxis: anticoagulated on Coumadin Discharge Planning Not yet ready for discharge. Continue treatment for Cdiff. Await infectious disease consultation. Patient with minimal help at home due to insurance barriers. Did not qualify for SNF/rehab on previous admission. Currently he has a nurse that visits once a week for wound dressing changes, and also changes suprapubic tube once monthly. Patient would be appropriate for hospice if family agrees. Attending Statement patient was seen and examined today. is more awake today. no fever. at the bedside. continue with Vancomycin. consult ID. rest of assessment and plan as noted above. Torri Briceño PA-C Sep 02, 2017 09:26 Areli Suárez MD Sep 02, 2017 12:24
[2017-09-02] MEDS ORDERED: INFLUENZA VIRUS VACCINE (QUADRIVALENT) 0.5 ML SYR IM ONE (10:00)
[2017-09-02] MEDS ORDERED: PNEUMOCOCCAL POLYVALENT INJ 25 MCG/0.5 ML SYR IM ONE (10:00)
[2017-09-02 11:03] VITALS: BP 102/54; PULSE 60; RESP 20; TEMP 98.2; O2SAT 100
--- NOTE | 2017-09-02 12:24 | MB ---
cc: Carson Méndez MD DATE: 09/02/2017 REQUESTING PHYSICIAN: Dr. Citlali Briceño REASON: Positive Clostridium difficile. Also, with abnormal urinalysis with gram-negative rods. The patient has suprapubic catheter. Please advise on antibiotics. HISTORY OF PRESENT ILLNESS: This is a 76-year-old male who was brought to the emergency department with diarrhea and generalized weakness. The patient is very somnolent during my attempts to interview him and I am unable to get any meaningful information from him. His is at bedside and I was able to get information from interviewing her and also from the medical record. notes that the patient has had diarrhea for 10 days straight. She notes that he has had up to 10 bouts of diarrhea a day and that he has been very weak. She notes that he has been sleeping all day over the past couple of weeks, although he does tend to sleep a lot usually. He has history of Parkinson's disease. She also reports that he has had significant weight loss. He has not been on antibiotics lately. He was in this hospital in May and he was discharged on 06/15/2017 and she reports that he has not taken any antibiotics since being in the hospital back then. The patient has a suprapubic catheter. It was changed approximately 10 days ago. The states that she changes the bag on this catheter collection system every week. The patient denies abdominal pain. He has been started on oral vancomycin. Urine culture has gram-negative ant and identity is pending. Urinalysis revealed innumerable white cells. PAST MEDICAL HISTORY, PAST SURGICAL HISTORY: Coronary artery disease, congestive heart failure, atrial fibrillation, hypertension, Parkinson's disease, bladder outlet obstruction, suprapubic catheter placement, history of pacemaker implantation in 2012 and coronary artery bypass graft surgery 02/17/1999. ALLERGIES: NO KNOWN DRUG ALLERGIES. MEDICATIONS: 1. Aricept. 2. Cordarone. 3. Coumadin. 4. Lactinex. 5. Vancomycin. 6. Asher. 7. Sinemet. 8. Ecotrin. 9. Ditropan. SOCIAL HISTORY: The patient is . No tobacco, no alcohol, no illicit drugs. FAMILY HISTORY: Noncontributory. REVIEW OF SYSTEMS: Unable to obtain. PHYSICAL EXAMINATION: GENERAL: This is a slender male who appears chronically ill. He is cachectic. VITAL SIGNS: Temp 98.2, BP 102/54, respirations 20, heart rate 60. HEAD, EARS, EYES, NOSE AND THROAT: The head is atraumatic. Bitemporal wasting visible. Extraocular movements are grossly intact. Pupils reactive to light. No icterus. Oropharynx slightly dry mucosa. NECK: Supple without adenopathy. LUNGS: Diminished. Clear breath sounds bilaterally. HEART: A 4/6 systolic ejection murmur at the left sternal border and also a 2/6 systolic ejection murmur at the right upper sternal border. ABDOMEN: Bowel sounds diminished, soft, flat, nontender. Suprapubic catheter exits the suprapubic region and there is no erythema visible. The skin appears intact. RECTAL: Not performed. EXTREMITIES: No clubbing, cyanosis or edema. The patient has bilateral posterior heel pressure ulcerations, which have no drainage. SKIN: No diffuse rash. NEUROLOGIC: No gross focal finding. PSYCHIATRIC: The patient is calm and cooperative. LABORATORY DATA: WBC 7.3, platelets 261, 85% neutrophils, 8% lymphocytes, hemoglobin 9.9. Creatinine 1.20, BUN 37. Estimated GFR 59. Sodium 141. X-RAYS: Chest x-ray shows cardiomegaly. IMPRESSION: 1. Clostridium difficile colitis. 2. Positive urine culture with gram-negative ant in patient who has a suprapubic catheter. This may be colonization. The patient is without fever or white blood cell count elevation. 3. Generalized weakness in a patient is also cachectic and has had a decreased appetite, per his . RECOMMENDATIONS: 1. Continue to treat the C. difficile with vancomycin. 2. Hold off on treatment for urinary tract infection since this may be colonization and would like to avoid unnecessary antibiotics at this time. 3. Monitor clinical status to see if he develops symptoms suggesting sepsis. Currently, he does not appear to be septic. Temperature and heart rate are normal. His respiratory rate is also normal. Thank you for this consultation. The patient's progress will be monitored and further recommendations will be given upon followup. MD UBALDO Samano/SHANTI , 11:30 AM , 12:23 PM
--- NOTE | 2017-09-02 16:18 | PD.WCN.NOT ---
Wound Consult Description: Wound consult ordered by Evangelina MARLEY Communicated with: Ray KEANE H-pod, Evangelina MARLEY Recommendation: 1. Reposition patient every 2 hours for comfort and offloading 2. Cleanse bilateral calcaneus with normal saline pat dry ,Skin prep periwound 3. Apply Optifoam 4x4 to wounds and secure with rolled gauze tape. 4. Change Calcaneus dressing every 3-5 days or as needed for dislodgement. 5. Cleanse inner buttocks with normal saline Apply Calazime cream BID or after loose stools. Additional Information: Patient was seen today by chief writer in H-pod for wound management.Spouse at bedside answering most questions patient is alert but non verbal to chief writer.Prior dressings removed from bilateral calcaneus .Search Engineer was able to visualize calcaneus. L calcaneus has area measuring ~4.0cm x ~4.0cm that is ~90 % intact unstable soft eschar with ~10% beefy red nongranular tissue.Scant serous drainage noted with no odor present.R calcaneus measures ~4.0cm x 3.8cm wound base is 100% intact unstable soft eschar.Wounds cleansed with normal saline pat dry skin prep applied to periwound and eschar Optifoam 4x4 applied and secured with rolled gauze sign and dated .Patient tolerated wound care well.Patient required 1 person max assistance to reposition to left side Coccyx/ sacral area visualized all areas blanchable and intact.Fissure noted to inner buttocks measuring ~1.0cm x ~0.2cm wound base is dry/pink.Patient is incontinent of stool pericare performed.Calazime cream applied to inner buttocks.Patient was repositioned to left side and pillows placed under right side.Bilateral heels floated on pillow to avoid contact with mattress surface. Kelvin Amaya [facility] Sep 02, 2017 16:18
[2017-09-02] MEDS: WARFARIN SOD 2 MG TAB PO SCH (17:52)
--- NOTE | 2017-09-02 18:53 | HHI.HCPN ---
Reason for visit a. To assist with evaluation and management of symptoms including: malnutrition, weakness, diarrhea. b. To assist medical decision maker(s) with: better understanding of current medical conditions; weighing benefits/burdens of medical treatment options; making medical treatment decisions. . Subjective/Interval History Patient seen and examined in Hpod of the emergency department. and son, Cralos and [id number] at bedside. Patient is more alert, answers questions though often needs translation to clearly understand what I am asking. He is slow to respond though seems to answer appropriately. Sometimes answers in [place]. Patient denies pain, shortness of breath, abdominal discomfort. Has oxygen, is not wearing it does not appear dyspneic. Family reports that he has eaten a small amount today. Reviewed infectious disease plan of care, advised we are waiting final urine culture results to determine if treatment is needed as he may have colonization given long-term suprapubic catheter. Family verbalizes understanding. Reviewed treatment for C. difficile. Goals remain aggressive at this time. No new labs or imaging today. . Family/friend interactions See interval note. Advance Directives Living Will: Never completed Health Care Surrogate: Never completed Durable Power of Director [employer]: Never completed Advance Directive Specifics Health Care Surrogate(s): Patient is not appear capacitated to make his own healthcare decisions. No written advanced directives, according to [place] statutes, healthcare proxy decision making falls to his spouse. I suspect will rely on the assistance of her sons to make decisions. . Significant change in goals: FULL CODE. Goals remain aggressive. Objective Vital Signs Date Time Temp Pulse Resp B/P (MAP) Pulse Ox O2 Delivery O2 Flow Rate FiO2 09/02/17 11:03 98.2 60 20 102/54 (70) 100 09/02/17 07:38 97.4 60 16 116/58 (77) 100 09/02/17 04:33 60 16 104/56 (72) 99 09/01/17 21:11 98.6 60 16 98/57 (71) 100 Intake & Output 09/02/17 09/02/17 07:00 19:00 Intake Total 950 ml Balance 950 ml IV Total 950 ml Physical Exam CONSTITUTIONAL/GENERAL: This is an elderly, frail, cachectic patient, in no apparent distress. TUBES/LINES/DRAINS: PIV, suprapubic catheter. SKIN: Ecchymoses on upper extremities. Bilateral heel wound dressings in place , unable to visualize wounds. Reported wound to coccyx, not visualized. Skin temperature appropriate. Not diaphoretic. CARDIOVASCULAR: Regular rate and rhythm, systolic murmur noted. RESPIRATORY/CHEST: Symmetric, unlabored respirations. Diminished breath sounds. GASTROINTESTINAL: Abdomen soft, non-tender, nondistended. No guarding. Bowel sounds present. GENITOURINARY: Without palpable bladder distension. Suprapubic catheter in place. MUSCULOSKELETAL: Extremities without clubbing, cyanosis, or edema. No mottling or clubbing. NEUROLOGICAL: Awakens briefly, lethargic. PSYCHIATRIC: Son reports hallucinations, none seen during my visit. . Diagnostic Tests Laboratory Laboratory Tests Test 08/31/17 21:45 08/31/17 23:10 09/01/17 10:55 09/02/17 07:25 White Blood Count 8.0 TH/MM3 (4.0-11.0) 7.3 TH/MM3 (4.0-11.0) Red Blood Count 3.77 MIL/MM3 (4.50-5.90) 3.53 MIL/MM3 (4.50-5.90) Hemoglobin 10.4 GM/DL (13.0-17.0) 9.9 GM/DL (13.0-17.0) Hematocrit 31.1 % (39.0-51.0) 29.1 % (39.0-51.0) Mean Corpuscular Volume 82.6 FL (80.0-100.0) 82.3 FL (80.0-100.0) Mean Corpuscular Hemoglobin 27.7 PG (27.0-34.0) 28.1 PG (27.0-34.0) Mean Corpuscular Hemoglobin Concent 33.6 % (32.0-36.0) 34.1 % (32.0-36.0) Red Cell Distribution Width 18.1 % (11.6-17.2) 17.9 % (11.6-17.2) Platelet Count 292 TH/MM3 (150-450) 261 TH/MM3 (150-450) Mean Platelet Volume 7.6 FL (7.0-11.0) 7.9 FL (7.0-11.0) Neutrophils (%) (Auto) 77.6 % (16.0-70.0) 85.6 % (16.0-70.0) Lymphocytes (%) (Auto) 14.9 % (9.0-44.0) 8.4 % (9.0-44.0) Monocytes (%) (Auto) 5.6 % (0.0-8.0) 4.4 % (0.0-8.0) Eosinophils (%) (Auto) 1.4 % (0.0-4.0) 1.2 % (0.0-4.0) Basophils (%) (Auto) 0.5 % (0.0-2.0) 0.4 % (0.0-2.0) Neutrophils # (Auto) 6.2 TH/MM3 (1.8-7.7) 6.3 TH/MM3 (1.8-7.7) Lymphocytes # (Auto) 1.2 TH/MM3 (1.0-4.8) 0.6 TH/MM3 (1.0-4.8) Monocytes # (Auto) 0.5 TH/MM3 (0-0.9) 0.3 TH/MM3 (0-0.9) Eosinophils # (Auto) 0.1 TH/MM3 (0-0.4) 0.1 TH/MM3 (0-0.4) Basophils # (Auto) 0.0 TH/MM3 (0-0.2) 0.0 TH/MM3 (0-0.2) CBC Comment DIFF FINAL DIFF FINAL Differential Comment Prothrombin Time 16.5 SEC (9.8-11.6) 17.8 SEC (9.8-11.6) Prothromb Time International Ratio 1.6 RATIO 1.8 RATIO Activated Partial Thromboplast Time 36.9 SEC (24.3-30.1) Urine Color YELLOW (YELLW/STRAW) Urine Turbidity CLOUDY (CLEAR) Urine pH 5.5 (5.0-8.5) Urine Specific [place] 1.019 (1.002-1.035) Urine Protein 30 mg/dL (NEG-TRACE) Urine Glucose (UA) NEG mg/dL (NEG) Urine Ketones NEG mg/dL (NEG) Urine Occult Blood MOD (NEG) Urine Nitrite NEG (NEG) Urine Bilirubin NEG (NEG) Urine Urobilinogen 2.0 MG/DL (LESS THAN Urine Leukocyte Esterase LARGE (NEG) Urine RBC 93 /hpf (0-3) Urine WBC /hpf (0-5) Urine Amorphous Sediment RARE Urine Bacteria MANY /hpf (NONE) Microscopic Urinalysis Comment CULTURE INDICATED Blood Urea Nitrogen 35 MG/DL (7-18) 37 MG/DL (7-18) Creatinine 1.33 MG/DL (0.60-1.30) 1.20 MG/DL (0.60-1.30) Random Glucose 101 MG/DL (74-106) 107 MG/DL (74-106) Total Protein 7.1 GM/DL (6.4-8.2) Albumin 2.6 GM/DL (3.4-5.0) Calcium Level 8.7 MG/DL (8.5-10.1) 8.7 MG/DL (8.5-10.1) Magnesium Level 2.0 MG/DL (1.5-2.5) Alkaline Phosphatase 105 U/L (45-117) Aspartate Amino Transf (AST/SGOT) 12 U/L (15-37) Alanine Aminotransferase (ALT/SGPT) LESS THAN 6 U/L (12-78) Total Bilirubin 0.7 MG/DL (0.2-1.0) Sodium Level 140 MEQ/L (136-145) 141 MEQ/L (136-145) Potassium Level 3.1 MEQ/L (3.5-5.1) 3.9 MEQ/L (3.5-5.1) Chloride Level 103 MEQ/L (98-107) 103 MEQ/L (98-107) Carbon Dioxide Level 29.5 MEQ/L (21.0-32.0) 30.2 MEQ/L (21.0-32.0) Anion Gap 8 MEQ/L (5-15) 8 MEQ/L (5-15) Estimat Glomerular Filtration Rate 52 ML/MIN (>89) 59 ML/MIN (>89) Total Creatine Kinase 98 U/L (39-308) Troponin I 0.03 NG/ML (0.02-0.05) B-Type Natriuretic Peptide 289 PG/ML (0-100) Lipase 84 U/L (73-393) Stool C. difficile Toxin (PCR) POSITIVE (NEGATIVE) Stl C. difficile Toxin Epiderm 027 PRESUMPTIVE NEGATIVE Result Diagram: 09/01/17 1055 09/01/17 1055 Microbiology Microbiology Date/Time Source Procedure Growth Status 08/31/17 23:10 Stool Stool Stool Pus (ALBERT) - Final FEW WBC'S Complete 08/31/17 23:10 Stool Stool - Final NO ENTERIC PATHOGENS DETECTED BY PCR... Complete 08/31/17 21:45 Urine Random Urine Urine Culture - Preliminary Gram Negative Marcell Resulted Imaging Last Impressions Head CT 08/31/172138 Signed Impressions: Service Date/Time: Thursday, August 31, 2017 22:15 - CONCLUSION: 1. Cerebral atrophy. 2. No acute intracranial abnormality Clinton English MD Chest X-Ray 08/31/172138 Signed Impressions: Service Date/Time: Thursday, August 31, 2017 21:58 - CONCLUSION: Cardiomegaly and CABG. Clinton English MD Assessment and Plan Disease Oriented Problem List: (1) Suprapubic catheter (2) Generalized weakness (3) Diarrhea (4) Chronic anticoagulation (5) CHF (congestive heart failure) (6) Urinary tract infection (7) Acute on chronic diastolic CHF (congestive heart failure) (8) Parkinson's disease Comment: End stage (9) Atrial fibrillation (10) CAD (coronary artery disease) (11) Bladder outlet obstruction Comment: S/P suprapubic catheter. (12) Hypokalemia (13) Chronic kidney disease (CKD) Symptom Scale: (1) Weakness 0-10 Scale: Unable to quantify Comment: Due to End Stage Parkinson's disease . (2) Malnutrition Comment: Weight 50 kg, Albumin 2.6. (3) Diarrhea 0-10 Scale: Unable to quantify Comment: due to C. Diff. Pertinent Non-Medical Issues Psychosocial: From [place], speaks [place]. with 2 sons. Spiritual: Unknown. Legal: Patient is not appear capacitated to make his own healthcare decisions. No written advanced directives, according to [place] statutes, healthcare proxy decision making falls to his spouse. I suspect will rely on the assistance of her sons to make decisions. Ethical issues impacting care: No known concerns at this time. . Important Contacts * Carlos Galaviz, son: [phone] * Malena Galaviz, son: [phone] . Prognosis Mr. Quispe is a 76-year-old man with likely end-stage Parkinson's disease, C. difficile, possible UTI with significant trajectory of nutritional and functional decline over the past 4-6 months. Patient has a life expectancy of 6 months or less. Hospice appropriate if goals are comfort oriented. . Code Status: Full Code Plan * Patient is not appear capacitated to make his own healthcare decisions. No written advanced directives, according to [place] statutes, healthcare proxy decision making falls to his spouse. I suspect will rely on the assistance of her sons to make decisions. * FULL CODE * Met with and son: Goals are aggressive including FULL CODE and treatment of infections. * SYMPTOMS: Weakness: due to progressive, likely end stage Parkinson's disease. PT ordered. Malnutrition: weight 50kg, albumin 2.6. Eating small amounts and drinking fluids per family, will monitor intake. Diarrhea: due to C. Diff. On Vancomycin. No new medication recommendations at this time. * Palliative care will continue to follow to assist with symptom management and further clarification of medical treatment goals. . Attestation To help prompt me to consider important information that might be impacting today's encounter and assessment, information from prior notes written by myself or my colleagues may have been "brought forward" into today's note. My signature on this note, however, is an attestation that I personally performed the exam, history, and/or decision-making noted today, and, unless otherwise indicated, the interactions with patient, family, and staff as well as the review of records all occurred today. I also attest that the listed assessment and stated plan reflect my best clinical judgment today based on the combination of historical information, prior notes, and today's exam/ interactions. When time spent is documented, it refers only to time spent today by the signer, or if indicated, combined time spent today by collaborating physician/nurse practitioner. Randa Bonilla Sep 02, 2017 18:53
[2017-09-02 22:25] VITALS: BP 119/61; PULSE 60; RESP 16; TEMP 97.9; O2SAT 100
[2017-09-02] MEDS: DONEPEZIL HCL 5 MG TAB PO SCH (22:30)
[2017-09-02] MEDS: AMIODARONE 200 MG TAB PO SCH (22:30)
[2017-09-03 00:19] VITALS: BP 132/62; PULSE 62; RESP 16; TEMP 98.6; O2SAT 100
[2017-09-03] MEDS: SODIUM CHLOR 0.9% 1000 ML INJ 1,000 ML IV SCH (02:53)
[2017-09-03] MEDS: OXYBUTYNIN CHLORIDE 5 MG TAB PO SCH ×2 (06:00→13:15)
[2017-09-03 06:56] LABS: INTERNATIONAL NORMALIZED RATIO 1.7 RATIO; PROTHROMBIN TIME - PATIENT 17.1 SEC (9.8-11.6)
[2017-09-03 08:22] VITALS: BP 119/60; PULSE 60; RESP 18; TEMP 97.9; O2SAT 100
[2017-09-03] MEDS: ASPIRIN EC 81 MG TABEC PO SCH (08:23)
[2017-09-03] MEDS: LEVODOPA/CARBIDOPA 1 TAB TABCR PO SCH ×2 (08:23→13:15)
[2017-09-03] MEDS: LACTOBACILLUS ACIDOPHILUS TAB PO SCH ×3 (08:23→17:17)
[2017-09-03] MEDS: VANCOMYCIN 500 MG VIAL (FOR ORAL USE ONLY) PO SCH ×2 (08:23→13:14)
[2017-09-03] MEDS: SODIUM CHLORIDE 0.9% FLUSH 10 ML FLUSH IV FLUSH SCH (08:23)
--- NOTE | 2017-09-03 08:31 | HHI.PR ---
Subjective Remarks Follow up for C.difficile diarrhea. The patient is awake, alert, oriented to self only. He denies any abdominal pain, nausea/vomiting, or fevers/chills. He is tolerating oral intake. He states he had "a little bit" of diarrhea overnight. Discussed with RN, patient only had 2 episodes of diarrhea yesterday and 1 early this morning. He is doing much better, more alert, and eating more per RN. No other medical complaints reported at this time. Objective Vitals Vital Signs Date Time Temp Pulse Resp B/P (MAP) Pulse Ox O2 Delivery O2 Flow Rate FiO2 09/03/17 08:22 97.9 60 18 119/60 (79) 100 09/03/17 00:19 98.6 62 16 132/62 (85) 100 09/02/17 22:25 97.9 60 16 119/61 (80) 100 09/02/17 11:03 98.2 60 20 102/54 (70) 100 I/O 09/02/17 09/02/17 09/02/17 09/03/17 09/03/17 09/03/17 07:00 15:00 23:00 07:00 15:00 23:00 Intake Total 950 ml Balance 950 ml IV Total 950 ml Result Diagram: 09/01/17 1055 09/01/17 1055 Imaging Last Impressions Head CT [id number] Signed Impressions: Service Date/Time: Thursday, August 31, 2017 22:15 - CONCLUSION: 1. Cerebral atrophy. 2. No acute intracranial abnormality Clinton English MD Chest X-Ray [id number] Signed Impressions: Service Date/Time: Thursday, August 31, 2017 21:58 - CONCLUSION: Cardiomegaly and CABG. Clinton English MD Objective Remarks GENERAL: Well-developed thin elderly male patient in NAD. SKIN: Warm and dry. Fissure at buttocks. Bilateral heels with ulcers, currently covered with dressings, CDI. HEENT: Atraumatic. Normocephalic. Pupils equal and round. Mucous membranes pink and moist. CARDIOVASCULAR: Regular rate and rhythm. 2/6 systolic murmur noted. RESPIRATORY: No accessory muscle use. Clear to auscultation. Breath sounds equal bilaterally. GASTROINTESTINAL: Abdomen soft, non-tender, nondistended. Normoactive bowel sounds x4. GENITOURINARY: Suprapubic catheter in place at RLQ, no surrounding erythema. MUSCULOSKELETAL: Extremities without clubbing, cyanosis, or edema. No obvious deformities. NEUROLOGICAL: Awake and alert, oriented to self and hospital only. No obvious cranial nerve deficits. Patient with 5/5 strength of plantar/dorsiflexion bilaterally, however 3-4/5 strength with hip flexion bilaterally. 5/5 strength of bilateral upper and lower extremities. Normal speech. PSYCHIATRIC: Appropriate mood and affect; insight and judgment limited. Medications and IVs Current Medications Medications (Trade) Dose Ordered Sig/Riana Route Start Time Stop Time Status Last Admin (NS Flush) 2 ml UNSCH PRN IV FLUSH 09/01/17 02:30 (NS Flush) 2 ml BID IV FLUSH 09/01/17 09:00 09/03/17 08:23 (Tylenol) 650 mg Q4H PRN PO 09/01/17 02:30 (Narcan Inj) 0.4 mg UNSCH PRN IV PUSH 09/01/17 02:30 (Ecotrin Ec) 81 mg DAILY PO 09/01/17 09:00 09/03/17 08:23 (Sinemet Cr 50-200 Mg) 3 tab TID PO 09/01/17 09:00 09/03/17 08:23 (Aricept) 5 mg HS PO 09/01/17 21:00 09/02/17 22:30 (Lasix) 40 mg BID@09,18 PO 09/01/17 09:00 Future Hold 09/01/17 10:03 (Ditropan) 5 mg Q8HR PO 09/01/17 06:00 09/03/17 06:00 (Coumadin) 2 mg DAILY@1600 PO 09/01/17 16:00 09/02/17 17:52 (Cordarone) 100 mg HS PO 09/01/17 21:00 09/02/17 22:30 Pharmacy Profile Note 0 ml @ 0 mls/hr UNSCH OTHER 09/01/17 02:30 Sodium Chloride 1,000 ml @ 42 mls/hr [id number] IV 09/01/17 03:15 09/03/17 02:53 (VANCOMYCIN for oral use only) 125 mg QID PO 09/01/17 13:00 09/15/17 12:59 09/03/17 08:23 (Lactinex) 1 tab TID PO 09/01/17 13:00 09/03/17 08:23 (Coumadin) 1 mg ONCE@1600 ONCE PO 09/03/17 16:00 09/03/17 16:01 A/P Assessment and Plan 76-year-old male with a past medical history significant for atrial fibrillation anticoagulated on Coumadin, CHF, CAD, hypertension, Parkinson's and bladder outlet obstruction with suprapubic catheter presents to the emergency department for the evaluation of progressively worsening weakness and recent diarrhea. Generalized weakness: suspect multifactorial secondary to worsening Parkinson's in combination with diarrhea/Cdiff. Possible UTI. -Treat Cdiff with abx, see below -Consult PT/OT, recommends returning to prior living situation (previously living at home with some [facility] due to insurance barriers) -Gentle IV fluid hydration as patient with history of CHF -Consult palliative care, appreciate assistance, patient is full code, would be hospice appropriate however family declining hospice at this time -With family declining hospice and placement, will discharge home to the care of his family, will try to arrange [facility] C.difficile Diarrhea: patient with 1 week of intractable diarrhea. Son reports last antibiotic use likely in May. -Started on Vanco 125mg po qid [id number] (will complete treatment on 09/14) -started lactinex tid -monitor bowel movements, much improved, only 2 episodes yesterday and 1 episode today Abnormal UA: with suprapubic catheter. Afebrile, no leukocytosis. -hold off on antibiotics for now and await urine culture, patient may be colonized with presence of suprapubic tube -preliminary urine culture with gram negative rods -consulted ID, agrees with withholding antibiotics at this time -continue monthly suprapubic catheter changes (last changed 1 week ago) Chronic Diastolic CHF: EMR reviewed, recent echocardiograms from July 2014 and May 2017 with EF 55-60%, mild MR, mild TR. -BNP 289, patient does not clinically appear to be volume overloaded -Hold patient's home lasix for now -Continue gentle IVF hydration and monitor closely for fluid overload Atrial fibrillation: chronic, has pacemaker -Continue home amiodarone -Continue anticoagulation with warfarin, monitor INR, currently subtherapeutic at 1.8 Subtherapeutic INR: INR 1.6 -Pharmacy consulted to assist with Coumadin dosing Parkinson's disease: chronic, patient mostly bed bound secondary to parkinson's -Continue home carbidopa/levodopa -patient sees neurologist in [place], continue outpatient f/up Hypokalemia: secondary to recent diarrhea -s/p po KCl repletion -Repeat BMP with K 3.9 -monitor Sacral/Heel Ulcers: chronic, present on admission -consult wound care nurse, appreciate recommendations -pressure ulcer prevention protocol and heel raisers DVT Prophylaxis: anticoagulated on Coumadin Discharge Planning Patient with minimal help at home due to insurance barriers. Did not qualify for SNF/rehab on previous admission. Currently he has a nurse that visits once a week for wound dressing changes, and also changes suprapubic tube once monthly. Patient would be appropriate for hospice, however family declining hospice and placement at this time. Will discharge home. Attending Statement patient was seen and examined today. denies pain. no fever. is more alert today. continue with Vanco. ID consult appreciated. will dc home. Torri Briceño PA-C Sep 03, 2017 08:31 Areli Suárez MD Sep 03, 2017 09:36
[2017-09-03] MEDS ORDERED: LACT PO (08:33)
[2017-09-03] MEDS ORDERED: VANC500I3 PO (08:33)
--- NOTE | 2017-09-03 09:22 | HHI.DCPOC ---
Discharge Care Plan Diagnosis: (1) C. difficile diarrhea (2) Weakness (3) Parkinson's disease Goals to Promote Your Health * To prevent worsening of your condition and complications * To maintain your health at the optimal level Directions to Meet Your Goals Take your medications as prescribed Follow your dietary instruction Follow activity as directed Keep your appointments as scheduled Take your immunizations and boosters as scheduled If your symptoms worsen call your PCP, if no PCP go to Urgent Care Center or Emergency Room Smoking is Dangerous to Your Health. Avoid second hand smoke Call the 24-hour hour crisis hotline for domestic abuse at Torri Briceño PA-C Sep 03, 2017 9:22 am
--- NOTE | 2017-09-03 13:55 | HHI.FF ---
Face to Face Verification Diagnosis: (1) C. difficile diarrhea Home Health Nursing Order: Medical education Signs/symptoms of disease process Medication education-adverse effect Nursing assessment with vital signs I have seen patient Nico Quispe on 09/03/17. My clinical findings support the need for the requested home health care services because: Ltd mobility - disease progression I certify that my clinical findings support that this patient is homebound because: Unsteady gait/balance Areli Suárez MD Sep 03, 2017 13:55
--- NOTE | 2017-09-03 15:00 | HHI.DS ---
Discharge Summary Admission Date Sep 01, 2017 at 00:23 Discharge Date: Sep 03, 2017 Admitting Diagnosis Dehydration, Generalized weakness, diarrhea (1) C. difficile diarrhea ICD Code: A04.72 - Enterocolitis due to Clostridium difficile, not specified as recurrent Diagnosis: Principal (2) Parkinson's disease ICD Code: G20 - Parkinson's disease Diagnosis: Secondary Status: Chronic (3) Weakness ICD Code: R53.1 - Weakness Diagnosis: Secondary Procedures None. Brief History - From Admission 76-year-old male with a past medical history significant for atrial fibrillation anticoagulated on Coumadin, CHF, CAD, hypertension, Parkinson's and bladder outlet obstruction with suprapubic catheter presents to the emergency department for the evaluation of progressively worsening weakness. The patient is sleepy during her interview and will tell me his name but does not answer my other questions. History obtained from ED documentation. Per the patient's son, the patient has become increasingly weak over the last week he has had diarrhea approximately 10 times per day. He has had poor p.o. intake. EMS was called today as the patient had a decreased level of consciousness today. CBC/BMP: 09/01/17 1055 09/01/17 1055 Significant Findings Laboratory Tests Test 08/31/17 21:45 08/31/17 23:10 09/01/17 10:55 09/02/17 07:25 Red Blood Count 3.77 MIL/MM3 (4.50-5.90) 3.53 MIL/MM3 (4.50-5.90) Hemoglobin 10.4 GM/DL (13.0-17.0) 9.9 GM/DL (13.0-17.0) Hematocrit 31.1 % (39.0-51.0) 29.1 % (39.0-51.0) Red Cell Distribution Width 18.1 % (11.6-17.2) 17.9 % (11.6-17.2) Neutrophils (%) (Auto) 77.6 % (16.0-70.0) 85.6 % (16.0-70.0) Prothrombin Time 16.5 SEC (9.8-11.6) 17.8 SEC (9.8-11.6) Activated Partial Thromboplast Time 36.9 SEC (24.3-30.1) Urine Turbidity CLOUDY (CLEAR) Urine Protein 30 mg/dL (NEG-TRACE) Urine Occult Blood MOD (NEG) Urine Leukocyte Esterase LARGE (NEG) Urine RBC 93 /hpf (0-3) Urine Bacteria MANY /hpf (NONE) Blood Urea Nitrogen 35 MG/DL (7-18) 37 MG/DL (7-18) Creatinine 1.33 MG/DL (0.60-1.30) Albumin 2.6 GM/DL (3.4-5.0) Aspartate Amino Transf (AST/SGOT) 12 U/L (15-37) Alanine Aminotransferase (ALT/SGPT) LESS THAN 6 U/L (12-78) Potassium Level 3.1 MEQ/L (3.5-5.1) Estimat Glomerular Filtration Rate 52 ML/MIN (>89) 59 ML/MIN (>89) B-Type Natriuretic Peptide 289 PG/ML (0-100) Stool C. difficile Toxin (PCR) POSITIVE (NEGATIVE) Lymphocytes (%) (Auto) 8.4 % (9.0-44.0) Lymphocytes # (Auto) 0.6 TH/MM3 (1.0-4.8) Random Glucose 107 MG/DL (74-106) Test 09/03/17 06:24 Prothrombin Time 17.1 SEC (9.8-11.6) Imaging Last Impressions Head CT [id number]/31/172138 Signed Impressions: Service Date/Time: Thursday, August 31, 2017 22:15 - CONCLUSION: 1. Cerebral atrophy. 2. No acute intracranial abnormality Clinton English MD Chest X-Ray 08/31/172138 Signed Impressions: Service Date/Time: Thursday, August 31, 2017 21:58 - CONCLUSION: Cardiomegaly and CABG. Clinton English MD PE at Discharge GENERAL: Well-developed thin elderly male patient in NAD. SKIN: Warm and dry. Fissure at buttocks. Bilateral heels with ulcers, currently covered with dressings, CDI. HEENT: Atraumatic. Normocephalic. Pupils equal and round. Mucous membranes pink and moist. CARDIOVASCULAR: Regular rate and rhythm. 2/6 systolic murmur noted. RESPIRATORY: No accessory muscle use. Clear to auscultation. Breath sounds equal bilaterally. GASTROINTESTINAL: Abdomen soft, non-tender, nondistended. Normoactive bowel sounds x4. GENITOURINARY: Suprapubic catheter in place at RLQ, no surrounding erythema. MUSCULOSKELETAL: Extremities without clubbing, cyanosis, or edema. No obvious deformities. NEUROLOGICAL: Awake and alert, oriented to self and hospital only. No obvious cranial nerve deficits. Patient with 5/5 strength of plantar/dorsiflexion bilaterally, however 3-4/5 strength with hip flexion bilaterally. 5/5 strength of bilateral upper and lower extremities. Normal speech. PSYCHIATRIC: Appropriate mood and affect; insight and judgment limited. Hospital Course 76-year-old male with a past medical history significant for atrial fibrillation anticoagulated on Coumadin, CHF, CAD, hypertension, Parkinson's and bladder outlet obstruction with suprapubic catheter presents to the emergency department for the evaluation of progressively worsening weakness and recent diarrhea. Generalized weakness: suspect multifactorial secondary to worsening Parkinson's in combination with diarrhea/Cdiff. Possible UTI. Treat Cdiff with abx, see below. Consult PT/OT, recommends returning to prior living situation ( previously living at home with some [facility] due to insurance barriers). Given gentle IV fluid hydration as patient with history of CHF. Consulted palliative care, appreciate assistance, patient is full code, would be hospice appropriate however family declining hospice at this time. With family declining hospice and placement, will discharge home to the care of his family, will try to arrange [facility]. Case management assisting with discharge planning. C.difficile Diarrhea: patient with 1 week of intractable diarrhea. Son reports last antibiotic use likely in May. Started on Vanco 125mg po qid [id number] ( will complete treatment on 09/14). Started lactinex tid. Monitored bowel movements , much improved, only 2 episodes yesterday and 1 episode today. Stable for discharge. Abnormal UA: with suprapubic catheter. Afebrile, no leukocytosis. Held off on antibiotics for now as patient likely colonized with presence of suprapubic tube. Preliminary urine culture with gram negative rods. Consulted ID, agrees with withholding antibiotics at this time as patient is afebrile, no leukocytosis, no sepsis. Continue monthly suprapubic catheter changes (last changed 1 week ago). Chronic Diastolic CHF: EMR reviewed, recent echocardiograms from July 2014 and May 2017 with EF 55-60%, mild MR, mild TR. BNP 289, patient does not clinically appear to be volume overloaded. Held patient's home lasix for now. Given gentle IVF hydration and monitor closely for fluid overload. Lungs clear on exam. No lower extremity edema. Atrial fibrillation: chronic, has pacemaker. Continue home amiodarone. Continue anticoagulation with warfarin, monitor INR, currently subtherapeutic at 1.8. Subtherapeutic INR: INR 1.8. Pharmacy consulted to assist with Coumadin dosing. Continue outpatient f/up for INR monitoring. Parkinson's disease: chronic, patient mostly bed bound secondary to parkinson' s. Continued home carbidopa/levodopa. Patient sees neurologist in [place], continue outpatient f/up. Hypokalemia: secondary to recent diarrhea. S/p po KCl repletion. Repeat BMP with K 3.9. Resolved. Sacral/Heel Ulcers: chronic, present on admission. Consult wound care nurse, appreciate recommendations. Pressure ulcer prevention protocol and heel raisers. Patient with minimal help at home due to insurance barriers. Did not qualify for SNF/rehab on previous admission. Currently he has a nurse that visits once a week for wound dressing changes, and also changes suprapubic tube once monthly. Patient would be appropriate for hospice, however family declining hospice and placement at this time. Will discharge home with any HHC that can be arranged by case management. Pt Condition on Discharge: Stable Discharge Disposition: Disch w/ Home Health Serv Discharge Time: > 30 minutes Discharge Instructions DIET: Follow Instructions for: Heart Healthy Diet Activities you can perform: Regular-No Restrictions Follow up Referrals: Neurology - 1 Week PCP Follow-up - 2-3 Days with Denisha Frausto MD New Medications: Lactobacillus Acidophilus (Acidophilus/l-Sporogenes) 35 Million Cell-25 Million Cell Tab 1 TAB PO TID for probiotic for 12 Days, #36 TAB Vancomycin Inj (Vancomycin Inj) 500 Mg Inj 125 MG PO QID for C.difficile for 12 Days, #48 INJECTION Continued Medications: Amiodarone (Pacerone) 100 Mg Tab 100 MG PO HS for Regulate Heart Beat, #30 TAB [address] (Aspir-81) 81 Mg Tabdr 81 MG PO DAILY, TAB Carbidopa-Levodopa ER (Carbidopa-Levodopa ER) 50-200 Mg Tab 3 TAB PO TID for Parkinson Disease Mgmt, #30 TAB 0 Refills Donepezil (Donepezil) 5 Mg Tab 5 MG PO HS for Dementia, #30 TAB 0 Refills Furosemide (Furosemide) 40 Mg Tab 40 MG PO BID@09,18 for CHF, #60 TAB Oxybutynin (Ditropan) 5 Mg Tab 5 MG PO Q8HR for Urinary Symptom Managemen, #90 TAB 2 Refills Warfarin (Warfarin) 2 Mg Tab 2 MG PO DAILY for Blood Clot Prevention, #30 TAB 0 Refills Torri Briceño PA-C Sep 03, 2017 15:00
[2017-09-03] MEDS ORDERED: WARFARIN SOD 1 MG TAB PO ONE (16:00)
[2017-09-03] MEDS: WARFARIN SOD 2 MG TAB PO SCH (17:18)
== END 2017-09-03 21:29 | disposition home or self-care (01) ==
LOC: NEPE 21:28 → NEDA 09-01 00:23 → NEDH 09-01 04:23 → NEPHCDU 09-01 13:01
PROVIDERS: ADMIT Internal Medicine; ATTEND Internal Medicine
DX: A04.72 Enterocolitis due to Clostridium difficile, not specified as recurrent (principal); G20 Parkinson's disease; I25.10 Atherosclerotic heart disease of native coronary artery without angina pectoris; I13.0 Hypertensive heart and chronic kidney disease with heart failure and stage 1 through stage 4 chronic kidney disease, or unspecified chronic kidney disease; I50.33 Acute on chronic diastolic (congestive) heart failure; E11.22 Type 2 diabetes mellitus with diabetic chronic kidney disease; N18.9 Chronic kidney disease, unspecified; E11.621 Type 2 diabetes mellitus with foot ulcer; L97.409 Non-pressure chronic ulcer of unspecified heel and midfoot with unspecified severity; L98.429 Non-pressure chronic ulcer of back with unspecified severity; R79.1 Abnormal coagulation profile; E87.6 Hypokalemia; G31.9 Degenerative disease of nervous system, unspecified; E78.00 Pure hypercholesterolemia, unspecified; I25.2 Old myocardial infarction; E86.0 Dehydration; I44.7 Left bundle-branch block, unspecified; R64 Cachexia; E46 Unspecified protein-calorie malnutrition; F03.90 Unspecified dementia, unspecified severity, without behavioral disturbance, psychotic disturbance, mood disturbance, and anxiety; N40.0 Benign prostatic hyperplasia without lower urinary tract symptoms; Z79.01 Long term (current) use of anticoagulants; Z95.1 Presence of aortocoronary bypass graft; Z95.0 Presence of cardiac pacemaker; Z79.899 Other long term (current) drug therapy; Z79.82 Long term (current) use of aspirin; Z23 Encounter for immunization
CPT/HCPCS: 70450; 71045; 80048; 80053; 81001; 82550; 83690; 83735; 83880; 84484; 85025; 85610; 85730; 87077; 87086; 87186; 87205; 87493; 87506; 90471; 90686; 93005; 96360; 96361; 97161; 97167; 99285; G0378; G8987; G8988; J7030; J7050; G0008; Q2038